=== PATIENT | male | born 1940 | race Caucasian/White ===

== ENCOUNTER 2017-06-08 19:36 | Inpatient (IN) ==
[2017-06-08] MEDS ORDERED: ASPIRIN 325 MG TABLET PO STA (20:17)
[2017-06-08] MEDS ORDERED: ONDANSETRON 4 MG/2 ML VIAL IV STA (20:17)
[2017-06-08] MEDS ORDERED: NITROGLYCERIN 2% OINT 1 INCH/GM PACK TOP STA (20:17)
[2017-06-08] MEDS ORDERED: ALUM/MAG/SIMETH/LIDO VISC 1:1 30 ML BOTTLE PO STA (20:17)
[2017-06-08] MEDS ORDERED: MORPHINE 2 MG/1 ML SYRINGE IV STA (20:17)
[2017-06-08] MEDS ORDERED: METOPROLOL TARTRATE 25 MG TABLET PO STA (20:19)
[2017-06-08] MEDS ORDERED: ONDANSETRON 4 MG/2 ML VIAL ONE (20:54)
[2017-06-08] MEDS ORDERED: ASPIRIN 325 MG TABLET ONE (20:54)
[2017-06-08] MEDS ORDERED: METOPROLOL TARTRATE 25 MG TABLET ONE (20:54)
[2017-06-08] MEDS ORDERED: NITROGLYCERIN 2% OINT 1 INCH/GM PACK TOP ONE (20:54)
[2017-06-08] MEDS ORDERED: MORPHINE 2 MG/1 ML SYRINGE ONE (20:54)
[2017-06-08] MEDS ORDERED: ALUM/MAG/SIMETH/LIDO VISC 1:1 30 ML BOTTLE PO ONE (20:54)
[2017-06-08 21:00] LABS: Basophils % 0.3 % (0.0-0.8); Eosinophils # 0.4 10*3/uL (0.0-0.87); Eosinophils % 4.2 % (0.00-10.9); Hematocrit 35.3 VOL% (42.0-52.0); Hemoglobin 11.1 GM/DL (14.0-18.0); Immature Granulocytes % 1.1 %; Lymphocytes # 2.4 10*3/uL (1.4-4.0); Lymphocytes % 25.6 % (21.2-54.2); Mean Corpuscular HGB Conc 31.4 GM/DL (32-36); Mean Corpuscular Hemoglobin 26 PG (27-34); Mean Corpuscular Volume 82.3 FL (87-102); Monocytes # 1.1 10*3/uL (0.11-0.8); Monocytes % 12.1 % (1.7-12.7); Neutrophils # 5.2 10*3/uL (1.4-7.4); Neutrophils % 56.7 % (38.7-73.9); Platelet Count 250 T/CUMM (130-400); Red Blood Count 4.29 MC/CUMM (3.8-5.5); Red Cell Distribution Width 16.4 % (9.3-17.3); White Blood Count 9.2 T/CUMM (4-12)
[2017-06-08 21:13] LABS: PT Patient Result 10.7 SECS
[2017-06-08 21:20] LABS: Alanine Aminotransferase 19 U/L (16-61); Albumin 3.3 G/DL (3.4-5.0); Alkaline Phosphatase 99 U/L (45-117); Aspartate Amino Transferase 11 U/L (0-37); Bilirubin,Total < 0.39 MG/DL (0.2-1.0); Blood Urea Nitrogen 18 MG/DL (7-18); Calcium 8.3 MG/DL (8.5-10.1); Glucose 150 MG/DL (74-106); Osmolality,Calculated 281.5 MOS/KG (273-304); Potassium 3.8 MMOL/L (3.5-5.1); Sodium 139 MMOL/L (136-145); Total Protein 6.5 G/DL (6.4-8.3)
[2017-06-08] MEDS ORDERED: ENOXAPARIN 100 MG/ML SYRINGE SUBCUT STA (21:50)
[2017-06-08] MEDS ORDERED: ENOXAPARIN 80 MG/0.8 ML SYRINGE SUBCUT ONE (22:43)
[2017-06-08 23:38] LABS: Apearance,Urine CLEAR (Clear); Bilirubin,Urine Negative (Negative); Blood, Urine Negative (Negative); Glucose,Urine (UA) Negative (Negative); Hyaline Casts,Urine 4 /LPF (0-3); Ketones,Urine Negative (Negative); Mucus,Urine Occasional /LPF (Occasional); Nitrite,Urine Negative (Negative); Protein,Urine Negative; RBC,Urine <1 /HPF (0-4); Urine Color Yellow (Yellow); Urine Specific Gravity 1.014 (1.001-1.035); WBC,Urine 1 /HPF (0-6)
[2017-06-08] MEDS ORDERED: MAGNESIUM SULF RIDER 4 GM in PREMIX 1 EACH IV PRN (23:40)
[2017-06-08] MEDS ORDERED: MORPHINE 2 MG/1 ML SYRINGE IV PRN (23:40)
[2017-06-08] MEDS ORDERED: POTASSIUM CHLORIDE 20 MEQ TABLET PO PRN (23:40)
[2017-06-08] MEDS ORDERED: SODIUM CHLORIDE 0.9% 1,000 ML IV SCH (23:40)
[2017-06-08] MEDS ORDERED: MAGNESIUM SULF RIDER 2 GM in PREMIX 1 EACH IV PRN (23:40)
[2017-06-08] MEDS ORDERED: METHOCARBAMOL 750 MG TABLET PO PRN (23:40)
[2017-06-08] MEDS ORDERED: ONDANSETRON 4 MG/2 ML VIAL IV PRN (23:40)
[2017-06-09] MEDS: NITROGLYCERIN 2% OINT 1 INCH/GM PACK TOP SCH ×4 (00:19→18:43)
[2017-06-09 03:56] LABS: Basophils % 0.4 % (0.0-0.8); Eosinophils # 0.4 10*3/uL (0.0-0.87); Eosinophils % 4.2 % (0.00-10.9); Hematocrit 33.2 VOL% (42.0-52.0); Hemoglobin 10.5 GM/DL (14.0-18.0); Immature Granulocytes % 1.2 %; Lymphocytes # 2.4 10*3/uL (1.4-4.0); Lymphocytes % 28.3 % (21.2-54.2); Mean Corpuscular HGB Conc 31.6 GM/DL (32-36); Mean Corpuscular Hemoglobin 26 PG (27-34); Mean Corpuscular Volume 82.4 FL (87-102); Mean Platelet Volume 11.3 FL (9.6-12.0); Monocytes % 11.5 % (1.7-12.7); Neutrophils # 4.6 10*3/uL (1.4-7.4); Neutrophils % 54.4 % (38.7-73.9); Platelet Count 229 T/CUMM (130-400); Red Blood Count 4.03 MC/CUMM (3.8-5.5); Red Cell Distribution Width 16.5 % (9.3-17.3); White Blood Count 8.4 T/CUMM (4-12)
[2017-06-09 04:36] LABS: Alanine Aminotransferase 17 U/L (16-61); Alkaline Phosphatase 85 U/L (45-117); Aspartate Amino Transferase 11 U/L (0-37); Bilirubin,Total < 0.39 MG/DL (0.2-1.0); Blood Urea Nitrogen 17 MG/DL (7-18); Calcium 8.4 MG/DL (8.5-10.1); Cholesterol 86 MG/DL (50-200); Glucose 104 MG/DL (74-106); HDL Cholesterol 28 MG/DL (40-60); Osmolality,Calculated 280.4 MOS/KG (273-304); Potassium 4.9 MMOL/L (3.5-5.1); Risk Ratio 3.07; Sodium 140 MMOL/L (136-145); Triglycerides 75 MG/DL (2-150)
[2017-06-09] MEDS ORDERED: CARVEDILOL 3.125 MG TABLET PO SCH (09:00)
[2017-06-09] MEDS ORDERED: FLUTICASONE 50 MCG NASAL SPRAY 16 GM BOTTLE BOTH NARES SCH (09:00)
[2017-06-09] MEDS ORDERED: CYANOCOBALAMIN 500 MCG TABLET PO SCH (09:00)
[2017-06-09] MEDS ORDERED: ATORVASTATIN 10 MG TABLET PO SCH (09:00)
[2017-06-09] MEDS ORDERED: PANTOPRAZOLE 40 MG TABLET PO SCH (09:00)
[2017-06-09] MEDS ORDERED: DOCUSATE SODIUM 100 MG CAPSULE PO SCH (09:00)
[2017-06-09] MEDS ORDERED: GLUCOSAMINE 500 MG TABLET PO SCH (09:00)
[2017-06-09] MEDS ORDERED: GABAPENTIN 600 MG TABLET PO SCH (09:00)
[2017-06-09] MEDS ORDERED: ESCITALOPRAM 10 MG TABLET PO SCH (09:00)
[2017-06-09] MEDS ORDERED: traMADol 50 MG TABLET PO SCH (09:00)
[2017-06-09] MEDS ORDERED: COENZYME Q10 100 MG CAPSULE PO SCH (09:00)
[2017-06-09] MEDS ORDERED: NON-FORMULARY MEDICATION (Omeprazole [Prilosec] 20 MG) PO SCH (09:00)
[2017-06-09] MEDS ORDERED: ASPIRIN CHEW 81 MG TABLET PO SCH (09:00)
[2017-06-09] MEDS ORDERED: TESTOSTERONE TOP SCH (09:00)
[2017-06-09] MEDS ORDERED: REGADENOSON 0.4 MG/5 ML SYRINGE IV ONE (11:40)
[2017-06-09 15:55] VITALS: BP 150/76
[2017-06-09] MEDS ORDERED: TAMSULOSIN 0.4 MG CAPSULE PO SCH (21:00)
== END 2017-06-09 20:35 | disposition home or self-care (01) | DRG 392 ==
LOC: N.ED 19:36 → N.EDINP 21:52 → N.TELES 22:33
PROVIDERS: ADMIT Internal Medicine Cardiovascular Disease; ATTEND Internal Medicine Cardiovascular Disease

== ENCOUNTER 2017-08-07 12:07 | Observation (INO) ==
[2017-08-07 12:54] LABS: Basophils % 0.4 % (0.0-0.8); Eosinophils # 0.2 10*3/uL (0.0-0.87); Eosinophils % 2.3 % (0.00-10.9); Hemoglobin 10.5 GM/DL (14.0-18.0); Immature Granulocytes % 0.7 %; Immature Granulocytes Absolute 0.06 #; Lymphocytes # 1.6 10*3/uL (1.4-4.0); Lymphocytes % 17.3 % (21.2-54.2); Mean Corpuscular HGB Conc 31.8 GM/DL (32-36); Mean Corpuscular Hemoglobin 26 PG (27-34); Mean Corpuscular Volume 80.1 FL (87-102); Mean Platelet Volume 10.7 FL (9.6-12.0); Monocytes # 0.9 10*3/uL (0.11-0.8); Monocytes % 9.5 % (1.7-12.7); Neutrophils # 6.3 10*3/uL (1.4-7.4); Neutrophils % 69.8 % (38.7-73.9); Platelet Count 302 T/CUMM (130-400); Red Blood Count 4.12 MC/CUMM (3.8-5.5); Red Cell Distribution Width 16.3 % (9.3-17.3); White Blood Count 9.1 T/CUMM (4-12)
[2017-08-07 13:26] LABS: Calcium 8.7 MG/DL (8.5-10.1); Potassium 4.3 MMOL/L (3.5-5.1); Troponin I Only 0.021 NG/ML (0.00-0.045)
[2017-08-07] MEDS ORDERED: POTASSIUM CHLORIDE 20 MEQ TABLET PO PRN (13:40)
[2017-08-07] MEDS ORDERED: MAGNESIUM SULF RIDER 2 GM in PREMIX 1 EACH IV PRN (13:40)
[2017-08-07] MEDS ORDERED: MAGNESIUM SULF RIDER 4 GM in PREMIX 1 EACH IV PRN (13:40)
[2017-08-07] MEDS ORDERED: NITROGLYCERIN SL 0.4 MG TABLET SL PRN (13:43)
[2017-08-07] MEDS: DEXTROSE 5% NACL 0.45% 1,000 ML IV SCH (15:15)
[2017-08-07 17:02] LABS: Troponin I Only 0.017 NG/ML (0.00-0.045)
[2017-08-07 19:48] LABS: Troponin I Only < 0.015 NG/ML (0.00-0.045)
[2017-08-07] MEDS: traMADol 50 MG TABLET PO SCH (20:30)
[2017-08-07] MEDS: CARVEDILOL 3.125 MG TABLET PO SCH (20:30)
[2017-08-07] MEDS: ESCITALOPRAM 10 MG TABLET PO SCH (20:30)
[2017-08-07] MEDS: GABAPENTIN 600 MG TABLET PO SCH (20:30)
[2017-08-07] MEDS ORDERED: ASPIRIN CHEW 81 MG TABLET PO SCH (21:00)
[2017-08-07] MEDS ORDERED: ENOXAPARIN 40 MG/0.4 ML SYRINGE SUBCUT SCH (21:00)
[2017-08-07] MEDS ORDERED: TAMSULOSIN 0.4 MG CAPSULE PO SCH (21:00)
[2017-08-08 05:59] LABS: Risk Ratio 3.19; VLDL CHOLESTEROL 15.6 MG/DL
[2017-08-08] MEDS: CARVEDILOL 3.125 MG TABLET PO SCH (08:12)
[2017-08-08] MEDS: GABAPENTIN 600 MG TABLET PO SCH (08:12)
[2017-08-08] MEDS: ESCITALOPRAM 10 MG TABLET PO SCH (08:12)
[2017-08-08] MEDS: traMADol 50 MG TABLET PO SCH (08:13)
[2017-08-08] MEDS ORDERED: COENZYME Q10 100 MG CAPSULE PO SCH (09:00)
[2017-08-08] MEDS ORDERED: PANTOPRAZOLE 40 MG TABLET PO SCH (09:00)
[2017-08-08] MEDS ORDERED: CYANOCOBALAMIN 2500 MCG SL SCH (09:00)
[2017-08-08] MEDS ORDERED: ACETAMINOPHEN 325 MG TABLET PO PRN (10:19)
[2017-08-08] MEDS ORDERED: ZALEPLON 5 MG CAPSULE PO PRN (10:19)
[2017-08-08] MEDS ORDERED: ONDANSETRON 4 MG/2 ML VIAL IV PRN (10:19)
[2017-08-08] MEDS ORDERED: BISACODYL 5 MG TABLET PO PRN (10:19)
[2017-08-08] MEDS: DEXTROSE 5% NACL 0.45% 1,000 ML IV SCH (10:45)
[2017-08-08] MEDS ORDERED: MAGNESIUM HYDROXIDE SUSP 30 ML UDCUP PO PRN (12:05)
[2017-08-08] MEDS ORDERED: SIMETHICONE CHEW 80 MG TABLET PO PRN (12:05)
[2017-08-08] MEDS: CALCIUM CARBONATE CHEW 500 MG TABLET PO PRN ×2 (13:22→17:09)
[2017-08-08 16:14] VITALS: BP 141/74
[2017-08-09] MEDS ORDERED: ATORVASTATIN 10 MG TABLET PO SCH (09:00)
== END 2017-08-08 17:39 | disposition home or self-care (01) ==
LOC: EDUNIT# → EDBD → N.EDINP 12:07 → N.ED 12:07 → N.TELEN 14:52
PROVIDERS: ADMIT Internal Medicine Cardiovascular Disease; ATTEND Internal Medicine Cardiovascular Disease

== ENCOUNTER 2018-01-29 14:12 | Inpatient (IN) ==
[2018-01-29 15:55] LABS: Basophils % 0.4 % (0.0-0.8); Eosinophils # 0.1 10*3/uL (0.0-0.87); Eosinophils % 1.7 % (0.00-10.9); Hematocrit 31.1 VOL% (42.0-52.0); Hemoglobin 9.5 GM/DL (14.0-18.0); Immature Granulocytes % 0.6 %; Immature Granulocytes Absolute 0.04 #; Lymphocytes % 13.9 % (21.2-54.2); Mean Corpuscular HGB Conc 30.5 GM/DL (32-36); Mean Corpuscular Hemoglobin 24 PG (27-34); Mean Corpuscular Volume 78.5 FL (87-102); Mean Platelet Volume 11.4 FL (9.6-12.0); Monocytes # 0.5 10*3/uL (0.11-0.8); Monocytes % 6.5 % (1.7-12.7); Neutrophils # 5.6 10*3/uL (1.4-7.4); Neutrophils % 76.9 % (38.7-73.9); Platelet Count 221 T/CUMM (130-400); Red Blood Count 3.96 MC/CUMM (3.8-5.5); Red Cell Distribution Width 19.7 % (9.3-17.3); White Blood Count 7.3 T/CUMM (4-12)
[2018-01-29 16:08] LABS: INR 1.1; Partial Thromboplastin Time 31.7 SECS (0-40)
[2018-01-29 16:36] LABS: Alanine Aminotransferase 22 U/L (16-61); Albumin 3.2 G/DL (3.4-5.0); Alkaline Phosphatase 61 U/L (45-117); Aspartate Amino Transferase 12 U/L (0-37); Calcium 8.1 MG/DL (8.5-10.1); Total Protein 6.5 G/DL (6.4-8.3)
[2018-01-29 16:37] LABS: Blood Urea Nitrogen 13 MG/DL (7-18); Glucose 127 MG/DL (74-106); Osmolality,Calculated 280.4 MOS/KG (273-304); Potassium 3.9 MMOL/L (3.5-5.1); Sodium 140 MMOL/L (136-145); Troponin I < 0.015 NG/ML (0.00-0.045)
[2018-01-29] MEDS ORDERED: ALBUTEROL/IPRATROPIUM 3 ML NEB RESP TX STA (19:17)
[2018-01-29] MEDS ORDERED: methylPREDNISolone SOD SUC 125 MG/2 ML VIAL IV STA (19:18)
[2018-01-29] MEDS ORDERED: cefTRIAXone 1,000 MG in SODIUM CHLORIDE 0.9% 100 ML IV STA (19:18)
[2018-01-29] MEDS ORDERED: AZITHROMYCIN 250 MG TABLET PO STA (19:18)
[2018-01-29] MEDS ORDERED: ONDANSETRON 4 MG/2 ML VIAL IV PRN (23:11)
[2018-01-29] MEDS: ATORVASTATIN 10 MG TABLET PO SCH (23:37)
[2018-01-29] MEDS: PANTOPRAZOLE 40 MG TABLET PO SCH (23:37)
[2018-01-29] MEDS: CARVEDILOL 3.125 MG TABLET PO SCH (23:38)
[2018-01-29] MEDS: ASPIRIN EC 81 MG TABLET PO SCH (23:38)
[2018-01-29] MEDS: GABAPENTIN 600 MG TABLET PO SCH (23:38)
[2018-01-29] MEDS: TAMSULOSIN 0.4 MG CAPSULE PO SCH (23:38)
[2018-01-30] MEDS: ALBUTEROL/IPRATROPIUM 3 ML NEB RESP TX SCH ×4 (01:17→19:25)
[2018-01-30] MEDS ORDERED: VANCOMYCIN INJ 1,250 MG in SODIUM CHLORIDE 0.9% 250 ML IV SCH ×2 (07:30→10:00)
[2018-01-30 07:50] LABS: Hematocrit 32.5 VOL% (42.0-52.0); Hemoglobin 9.7 GM/DL (14.0-18.0); Immature Granulocytes % 0.7 %; Immature Granulocytes Absolute 0.04 #; Lymphocytes # 0.6 10*3/uL (1.4-4.0); Lymphocytes % 11.4 % (21.2-54.2); Mean Corpuscular HGB Conc 29.8 GM/DL (32-36); Mean Corpuscular Hemoglobin 24 PG (27-34); Mean Corpuscular Volume 79.5 FL (87-102); Mean Platelet Volume 12.1 FL (9.6-12.0); Monocytes # 0.1 10*3/uL (0.11-0.8); Monocytes % 1.8 % (1.7-12.7); Neutrophils # 4.8 10*3/uL (1.4-7.4); Neutrophils % 86.1 % (38.7-73.9); Platelet Count 230 T/CUMM (130-400); Red Blood Count 4.09 MC/CUMM (3.8-5.5); Red Cell Distribution Width 19.8 % (9.3-17.3); White Blood Count 5.6 T/CUMM (4-12)
[2018-01-30 08:11] LABS: Calcium 8.5 MG/DL (8.5-10.1); Osmolality,Calculated 277.7 MOS/KG (273-304); Potassium 4.3 MMOL/L (3.5-5.1)
[2018-01-30] MEDS: PANTOPRAZOLE 40 MG TABLET PO SCH ×2 (08:41→21:25)
[2018-01-30] MEDS: CARVEDILOL 3.125 MG TABLET PO SCH ×2 (08:41→18:05)
[2018-01-30] MEDS: DOCUSATE SODIUM 100 MG CAPSULE PO SCH (08:41)
[2018-01-30] MEDS: GABAPENTIN 600 MG TABLET PO SCH ×2 (08:41→21:25)
[2018-01-30] MEDS: ESCITALOPRAM 10 MG TABLET PO SCH (08:41)
[2018-01-30] MEDS: COENZYME Q10 100 MG CAPSULE PO SCH (08:41)
[2018-01-30] MEDS: predniSONE 20 MG TABLET PO SCH (08:41)
[2018-01-30] MEDS ORDERED: AZITHROMYCIN 250 MG TABLET PO SCH (09:00)
[2018-01-30] MEDS: LEVOFLOXACIN INJ 750 MG in PREMIX 1 EACH IV SCH (09:32)
[2018-01-30] MEDS ORDERED: AZITHROMYCIN INJ 500 MG in SODIUM CHLORIDE 0.9% 250 ML IV SCH (10:00)
[2018-01-30] MEDS: ENOXAPARIN 40 MG/0.4 ML SYRINGE SUBCUT SCH (13:41)
[2018-01-30] MEDS: MEROPENEM 1,000 MG in SODIUM CHLORIDE 0.9% 100 ML IV SCH ×2 (13:51→21:25)
[2018-01-30] MEDS: FUROSEMIDE 40 MG/4 ML VIAL IV SCH (18:05)
[2018-01-30] MEDS ORDERED: cefTRIAXone 1,000 MG in SYRINGE 1 EACH IV SCH (21:00)
[2018-01-30] MEDS: TAMSULOSIN 0.4 MG CAPSULE PO SCH (21:25)
[2018-01-30] MEDS: ASPIRIN EC 81 MG TABLET PO SCH (21:25)
[2018-01-31] MEDS: ALBUTEROL/IPRATROPIUM 3 ML NEB RESP TX SCH ×4 (00:38→19:46)
[2018-01-31 05:50] LABS: Basophils % 0.2 % (0.0-0.8); Eosinophils % 0.2 % (0.00-10.9); Hematocrit 30.3 VOL% (42.0-52.0); Hemoglobin 8.9 GM/DL (14.0-18.0); Immature Granulocytes % 0.4 %; Immature Granulocytes Absolute 0.04 #; Lymphocytes # 1.5 10*3/uL (1.4-4.0); Lymphocytes % 15.2 % (21.2-54.2); Mean Corpuscular HGB Conc 29.4 GM/DL (32-36); Mean Corpuscular Hemoglobin 24 PG (27-34); Mean Corpuscular Volume 79.9 FL (87-102); Mean Platelet Volume 11.5 FL (9.6-12.0); Monocytes # 0.9 10*3/uL (0.11-0.8); Monocytes % 9.3 % (1.7-12.7); Neutrophils # 7.4 10*3/uL (1.4-7.4); Neutrophils % 74.7 % (38.7-73.9); Platelet Count 211 T/CUMM (130-400); Red Blood Count 3.79 MC/CUMM (3.8-5.5); Red Cell Distribution Width 19.9 % (9.3-17.3); White Blood Count 9.9 T/CUMM (4-12)
[2018-01-31] MEDS: MEROPENEM 1,000 MG in SODIUM CHLORIDE 0.9% 100 ML IV SCH ×3 (06:07→21:19)
[2018-01-31 06:11] LABS: Bilirubin,Total 0.7 MG/DL (0.2-1.0); Calcium 8.8 MG/DL (8.5-10.1); Osmolality,Calculated 286.1 MOS/KG (273-304); Potassium 3.9 MMOL/L (3.5-5.1); Total Protein 6.1 G/DL (6.4-8.3)
[2018-01-31] MEDS: DOCUSATE SODIUM 100 MG CAPSULE PO SCH (08:56)
[2018-01-31] MEDS: PANTOPRAZOLE 40 MG TABLET PO SCH ×2 (10:20→20:00)
[2018-01-31] MEDS: FUROSEMIDE 40 MG/4 ML VIAL IV SCH ×2 (10:20→16:54)
[2018-01-31] MEDS: ESCITALOPRAM 10 MG TABLET PO SCH (10:20)
[2018-01-31] MEDS: ENOXAPARIN 40 MG/0.4 ML SYRINGE SUBCUT SCH (10:20)
[2018-01-31] MEDS: GABAPENTIN 600 MG TABLET PO SCH ×2 (10:20→20:00)
[2018-01-31] MEDS: LEVOFLOXACIN INJ 750 MG in PREMIX 1 EACH IV SCH (10:21)
[2018-01-31] MEDS: predniSONE 20 MG TABLET PO SCH (10:21)
[2018-01-31] MEDS: CARVEDILOL 3.125 MG TABLET PO SCH ×2 (10:21→16:55)
[2018-01-31] MEDS: COENZYME Q10 100 MG CAPSULE PO SCH (10:23)
[2018-01-31] MEDS: ASPIRIN EC 81 MG TABLET PO SCH (19:59)
[2018-01-31] MEDS: ATORVASTATIN 10 MG TABLET PO SCH (20:00)
[2018-01-31] MEDS: TAMSULOSIN 0.4 MG CAPSULE PO SCH (20:00)
[2018-02-01] MEDS: ALBUTEROL/IPRATROPIUM 3 ML NEB RESP TX SCH ×2 (00:33→07:55)
[2018-02-01 05:41] LABS: Basophils % 0.2 % (0.0-0.8); Eosinophils % 0.2 % (0.00-10.9); Hematocrit 33.4 VOL% (42.0-52.0); Hemoglobin 10.2 GM/DL (14.0-18.0); Immature Granulocytes % 0.5 %; Immature Granulocytes Absolute 0.07 #; Lymphocytes # 1.8 10*3/uL (1.4-4.0); Lymphocytes % 13.8 % (21.2-54.2); Mean Corpuscular HGB Conc 30.5 GM/DL (32-36); Mean Corpuscular Hemoglobin 24 PG (27-34); Mean Corpuscular Volume 78.4 FL (87-102); Mean Platelet Volume 11.7 FL (9.6-12.0); Monocytes # 1.2 10*3/uL (0.11-0.8); Neutrophils % 76.3 % (38.7-73.9); Platelet Count 264 T/CUMM (130-400); Red Blood Count 4.26 MC/CUMM (3.8-5.5); Red Cell Distribution Width 19.8 % (9.3-17.3); White Blood Count 13.1 T/CUMM (4-12)
[2018-02-01 05:59] LABS: Albumin 3.2 G/DL (3.4-5.0); Bilirubin,Total 0.5 MG/DL (0.2-1.0); Calcium 8.6 MG/DL (8.5-10.1); Osmolality,Calculated 281.4 MOS/KG (273-304); Potassium 3.8 MMOL/L (3.5-5.1); Total Protein 6.5 G/DL (6.4-8.3)
[2018-02-01] MEDS: MEROPENEM 1,000 MG in SODIUM CHLORIDE 0.9% 100 ML IV SCH (06:15)
[2018-02-01] MEDS: PANTOPRAZOLE 40 MG TABLET PO SCH (09:01)
[2018-02-01] MEDS: ESCITALOPRAM 10 MG TABLET PO SCH (09:01)
[2018-02-01] MEDS: COENZYME Q10 100 MG CAPSULE PO SCH (09:01)
[2018-02-01] MEDS: predniSONE 20 MG TABLET PO SCH (09:01)
[2018-02-01] MEDS: DOCUSATE SODIUM 100 MG CAPSULE PO SCH (09:01)
[2018-02-01] MEDS: GABAPENTIN 600 MG TABLET PO SCH (09:01)
[2018-02-01] MEDS: FUROSEMIDE 40 MG/4 ML VIAL IV SCH (09:02)
[2018-02-01] MEDS: LEVOFLOXACIN INJ 750 MG in PREMIX 1 EACH IV SCH (09:02)
[2018-02-01] MEDS: CARVEDILOL 3.125 MG TABLET PO SCH (09:02)
[2018-02-01] MEDS: ENOXAPARIN 40 MG/0.4 ML SYRINGE SUBCUT SCH (09:03)
[2018-02-01 12:09] VITALS: BP 136/61
== END 2018-02-01 11:55 | disposition home or self-care (01) | DRG 291 ==
LOC: N.ED 14:12 → SUATTDRO 21:30 → N.EDINP 21:30 → N.5E 22:30
PROVIDERS: ADMIT Internal Medicine

== ENCOUNTER 2018-03-07 13:26 | Inpatient (IN) ==
[2018-03-07] MEDS ORDERED: LEVOFLOXACIN INJ 500 MG in PREMIX 1 EACH IV STA (14:00)
[2018-03-07 14:31] LABS: Basophils % 0.2 % (0.0-0.8); Eosinophils % 0.2 % (0.00-10.9); Hematocrit 31.9 VOL% (42.0-52.0); Hemoglobin 9.7 GM/DL (14.0-18.0); Immature Granulocytes % 0.8 %; Immature Granulocytes Absolute 0.15 #; Lymphocytes # 0.7 10*3/uL (1.4-4.0); Lymphocytes % 3.8 % (21.2-54.2); Mean Corpuscular HGB Conc 30.4 GM/DL (32-36); Mean Corpuscular Hemoglobin 23 PG (27-34); Mean Corpuscular Volume 75.4 FL (87-102); Mean Platelet Volume 11.8 FL (9.6-12.0); Monocytes # 1.3 10*3/uL (0.11-0.8); Monocytes % 7.1 % (1.7-12.7); NRBC # 0.03 10*3/uL; Neutrophils # 15.9 10*3/uL (1.4-7.4); Neutrophils % 87.9 % (38.7-73.9); Platelet Count 218 T/CUMM (130-400); Red Blood Count 4.23 MC/CUMM (3.8-5.5); White Blood Count 18.1 T/CUMM (4-12)
[2018-03-07 14:42] LABS: Albumin 3.3 G/DL (3.4-5.0); Osmolality,Calculated 278.8 MOS/KG (273-304); Potassium 3.6 MMOL/L (3.5-5.1); Total Protein 6.6 G/DL (6.4-8.3)
[2018-03-07 15:20] LABS: Lymphocytes 3 % (20-55); Nucleated Red Blood Cells 1 (0-5); Segmented Neutrophils 90 % (50-85); Total Cells Counted 100
[2018-03-07 15:24] LABS: Anisocytosis 1+; Elliptocytes Few; Lactic Acid 1.3 MMOL/L (0.4-2.0)
[2018-03-07 15:25] LABS: Giant Platelets Few; Hypochromasia 1+; Ovalocytes 1+; Polychromasia Few
[2018-03-07 15:26] LABS: Schistocytes Few
[2018-03-07 16:00] LABS: Apearance,Urine CLEAR (Clear); Bilirubin,Urine Negative (Negative); Blood, Urine Negative (Negative); Glucose,Urine (UA) Negative (Negative); Ketones,Urine Negative (Negative); Mucus,Urine Occasional /LPF (Occasional); Nitrite,Urine Negative (Negative); Protein,Urine Negative; RBC,Urine 1 /HPF (0-4); Urine Color Yellow (Yellow); WBC,Urine <1 /HPF (0-6)
[2018-03-07] MEDS ORDERED: ACETAMINOPHEN 325 MG TABLET PO PRN (16:16)
[2018-03-07] MEDS ORDERED: ONDANSETRON 4 MG/2 ML VIAL IV PRN (16:16)
[2018-03-07] MEDS: ENOXAPARIN 40 MG/0.4 ML SYRINGE SUBCUT SCH (17:22)
[2018-03-07] MEDS ORDERED: LORazepam 2 MG/1 ML VIAL IV PRN (17:33)
[2018-03-07] MEDS: ALBUTEROL/IPRATROPIUM 3 ML NEB RESP TX SCH (19:30)
[2018-03-07] MEDS: CARVEDILOL 3.125 MG TABLET PO SCH (21:22)
[2018-03-07] MEDS: PANTOPRAZOLE 40 MG TABLET PO SCH (21:22)
[2018-03-07] MEDS: TAMSULOSIN 0.4 MG CAPSULE PO SCH (21:22)
[2018-03-07] MEDS: GABAPENTIN 600 MG TABLET PO SCH (21:22)
[2018-03-07] MEDS: ASPIRIN EC 81 MG TABLET PO SCH (21:22)
[2018-03-08] MEDS: ALBUTEROL/IPRATROPIUM 3 ML NEB RESP TX SCH ×4 (00:50→19:53)
[2018-03-08] MEDS: PANTOPRAZOLE 40 MG TABLET PO SCH ×3 (08:09→20:48)
[2018-03-08] MEDS: GABAPENTIN 600 MG TABLET PO SCH ×3 (08:09→20:47)
[2018-03-08] MEDS: CARVEDILOL 3.125 MG TABLET PO SCH ×2 (08:09→18:58)
[2018-03-08] MEDS: predniSONE 10 MG TABLET PO SCH (08:09)
[2018-03-08] MEDS: FUROSEMIDE 40 MG/4 ML VIAL IV SCH ×2 (08:10→18:46)
[2018-03-08] MEDS: FLUTICASONE 50 MCG NASAL SPRAY 16 GM BOTTLE BOTH NARES SCH (08:14)
[2018-03-08 08:28] LABS: Basophils % 0.2 % (0.0-0.8); Eosinophils # 0.1 10*3/uL (0.0-0.87); Eosinophils % 0.9 % (0.00-10.9); Hematocrit 29.9 VOL% (42.0-52.0); Immature Granulocytes % 0.5 %; Immature Granulocytes Absolute 0.06 #; Lymphocytes # 1.8 10*3/uL (1.4-4.0); Lymphocytes % 13.9 % (21.2-54.2); Mean Corpuscular HGB Conc 30.1 GM/DL (32-36); Mean Corpuscular Hemoglobin 23 PG (27-34); Mean Corpuscular Volume 76.7 FL (87-102); Mean Platelet Volume 12.1 FL (9.6-12.0); Monocytes # 1.3 10*3/uL (0.11-0.8); Monocytes % 10.3 % (1.7-12.7); Neutrophils # 9.3 10*3/uL (1.4-7.4); Neutrophils % 74.2 % (38.7-73.9); Platelet Count 188 T/CUMM (130-400); Red Cell Distribution Width 19.7 % (9.3-17.3); White Blood Count 12.6 T/CUMM (4-12)
[2018-03-08 09:07] LABS: Albumin 2.9 G/DL (3.4-5.0); Bilirubin,Total 0.7 MG/DL (0.2-1.0); Calcium 8.3 MG/DL (8.5-10.1); Osmolality,Calculated 281.3 MOS/KG (273-304); Potassium 3.3 MMOL/L (3.5-5.1); Risk Ratio 2.45; Thyroid Stimulating Hormone 3.55 uIU/ml (0.358-3.74); Total Protein 5.9 G/DL (6.4-8.3); VLDL CHOLESTEROL 12.6 MG/DL
[2018-03-08] MEDS ORDERED: POTASSIUM CHLORIDE RIDER 10 MEQ in PREMIX 1 EACH IV PRN (10:15)
[2018-03-08] MEDS: POTASSIUM CHLORIDE 20 MEQ TABLET PO SCH (15:16)
[2018-03-08] MEDS: POTASSIUM CHLORIDE 20 MEQ/15 ML UDCUP PER TUBE PRN ×3 (15:16→18:58)
[2018-03-08] MEDS: LEVOFLOXACIN INJ 500 MG in PREMIX 1 EACH IV SCH (18:50)
[2018-03-08] MEDS: ENOXAPARIN 40 MG/0.4 ML SYRINGE SUBCUT SCH (18:52)
[2018-03-08] MEDS: ASPIRIN EC 81 MG TABLET PO SCH (20:47)
[2018-03-08] MEDS: TAMSULOSIN 0.4 MG CAPSULE PO SCH (20:47)
[2018-03-09 00:49] LABS: Calcium 8.6 MG/DL (8.5-10.1); Osmolality,Calculated 279.5 MOS/KG (273-304); Potassium 3.9 MMOL/L (3.5-5.1)
[2018-03-09 00:53] LABS: % Iron Saturation 5.4 % (18-50); Ferritin 40.3 ng/ml (26-388)
[2018-03-09 01:08] LABS: Folate > 24.0 NG/ML (5.4-24.0); Vitamin B12 > 2000 PG/ML (211-911)
[2018-03-09 01:12] LABS: Basophils % 0.2 % (0.0-0.8); Eosinophils # 0.2 10*3/uL (0.0-0.87); Eosinophils % 1.6 % (0.00-10.9); Hematocrit 34.9 VOL% (42.0-52.0); Hemoglobin 10.5 GM/DL (14.0-18.0); Immature Granulocytes % 1.1 %; Immature Granulocytes Absolute 0.15 #; Lymphocytes # 1.8 10*3/uL (1.4-4.0); Lymphocytes % 12.6 % (21.2-54.2); Mean Corpuscular HGB Conc 30.1 GM/DL (32-36); Mean Corpuscular Hemoglobin 23 PG (27-34); Mean Corpuscular Volume 76.4 FL (87-102); Mean Platelet Volume 11.8 FL (9.6-12.0); Monocytes # 1.3 10*3/uL (0.11-0.8); Monocytes % 9.4 % (1.7-12.7); NRBC # 0.02 10*3/uL; Neutrophils # 10.5 10*3/uL (1.4-7.4); Neutrophils % 75.1 % (38.7-73.9); Platelet Count 232 T/CUMM (130-400); Red Blood Count 4.57 MC/CUMM (3.8-5.5); Red Cell Distribution Width 19.6 % (9.3-17.3)
[2018-03-09] MEDS: ALBUTEROL/IPRATROPIUM 3 ML NEB RESP TX SCH ×4 (01:19→19:20)
[2018-03-09 02:35] LABS: Sedimentation Rate-Westergren 39 MM/HR (0-20)
[2018-03-09 04:48] LABS: Band Neutrophils 3 % (0-10); Eosinophils 2 % (0-10); Lymphocytes 12 % (20-55); Platelet Estimate Normal; Segmented Neutrophils 74 % (50-85); Total Cells Counted 100
[2018-03-09] MEDS: CARVEDILOL 3.125 MG TABLET PO SCH ×2 (08:33→16:40)
[2018-03-09] MEDS: PANTOPRAZOLE 40 MG TABLET PO SCH ×3 (08:34→20:33)
[2018-03-09] MEDS: GABAPENTIN 600 MG TABLET PO SCH ×3 (08:34→20:33)
[2018-03-09] MEDS: POTASSIUM CHLORIDE 20 MEQ TABLET PO SCH (08:34)
[2018-03-09] MEDS: predniSONE 10 MG TABLET PO SCH (08:34)
[2018-03-09] MEDS: FUROSEMIDE 40 MG/4 ML VIAL IV SCH ×2 (08:35→16:45)
[2018-03-09] MEDS: FLUTICASONE 50 MCG NASAL SPRAY 16 GM BOTTLE BOTH NARES SCH (08:40)
[2018-03-09] MEDS ORDERED: ATORVASTATIN 10 MG TABLET PO SCH (09:00)
[2018-03-09] MEDS ORDERED: LISINOPRIL 2.5 MG TABLET PO SCH (09:30)
[2018-03-09] MEDS ORDERED: IRON SUCROSE 200 MG in SODIUM CHLORIDE 0.9% 100 ML IV ONE (10:00)
[2018-03-09] MEDS: ENOXAPARIN 40 MG/0.4 ML SYRINGE SUBCUT SCH (16:54)
[2018-03-09] MEDS: LEVOFLOXACIN INJ 500 MG in PREMIX 1 EACH IV SCH (18:27)
[2018-03-09] MEDS: TAMSULOSIN 0.4 MG CAPSULE PO SCH (20:33)
[2018-03-09] MEDS: ASPIRIN EC 81 MG TABLET PO SCH (20:33)
[2018-03-10] MEDS: ALBUTEROL/IPRATROPIUM 3 ML NEB RESP TX SCH ×2 (00:34→07:30)
[2018-03-10 04:43] LABS: Basophils % 0.2 % (0.0-0.8); Eosinophils # 0.3 10*3/uL (0.0-0.87); Eosinophils % 2.5 % (0.00-10.9); Hematocrit 35.3 VOL% (42.0-52.0); Hemoglobin 10.7 GM/DL (14.0-18.0); Immature Granulocytes % 0.9 %; Immature Granulocytes Absolute 0.12 #; Lymphocytes # 1.9 10*3/uL (1.4-4.0); Lymphocytes % 14.8 % (21.2-54.2); Mean Corpuscular HGB Conc 30.3 GM/DL (32-36); Mean Corpuscular Hemoglobin 23 PG (27-34); Mean Corpuscular Volume 75.8 FL (87-102); Mean Platelet Volume 11.6 FL (9.6-12.0); Monocytes # 1.4 10*3/uL (0.11-0.8); Monocytes % 10.7 % (1.7-12.7); NRBC # 0.02 10*3/uL; Neutrophils # 9.1 10*3/uL (1.4-7.4); Neutrophils % 70.9 % (38.7-73.9); Platelet Count 246 T/CUMM (130-400); Red Blood Count 4.66 MC/CUMM (3.8-5.5); Red Cell Distribution Width 19.8 % (9.3-17.3); White Blood Count 12.9 T/CUMM (4-12)
[2018-03-10 04:51] LABS: Calcium 8.9 MG/DL (8.5-10.1); Osmolality,Calculated 280.4 MOS/KG (273-304); Potassium 3.4 MMOL/L (3.5-5.1)
[2018-03-10 07:40] VITALS: BP 132/64
[2018-03-10] MEDS: FUROSEMIDE 40 MG/4 ML VIAL IV SCH (08:42)
[2018-03-10] MEDS: GABAPENTIN 600 MG TABLET PO SCH (08:43)
[2018-03-10] MEDS: CARVEDILOL 3.125 MG TABLET PO SCH (08:43)
[2018-03-10] MEDS: PANTOPRAZOLE 40 MG TABLET PO SCH ×2 (08:43→08:58)
[2018-03-10] MEDS: predniSONE 10 MG TABLET PO SCH (08:43)
[2018-03-10] MEDS: FLUTICASONE 50 MCG NASAL SPRAY 16 GM BOTTLE BOTH NARES SCH (08:47)
[2018-03-10] MEDS ORDERED: POTASSIUM CHLORIDE 20 MEQ TABLET PO SCH (09:00)
[2018-03-10] MEDS ORDERED: LISINOPRIL 2.5 MG TABLET PO SCH (09:00)
[2018-03-13 10:33] LABS: Hemoglobin A1 (Alkaline) 97.6 % (96.5-98.5); Hemoglobin A2 (Alkaline) 2.4 % (1.5-3.5)
== END 2018-03-10 12:36 | disposition home or self-care (01) | DRG 291 ==
LOC: EDBD → EDUNIT# → N.ED 13:26 → N.EDINP 16:16 → N.TELES 17:11
PROVIDERS: ADMIT Hospitalist; ATTEND Hospitalist

== ENCOUNTER 2018-08-01 15:50 | Inpatient (IN) ==
[2018-08-01 17:16] LABS: Basophils % 0.3 % (0.0-0.8); Eosinophils # 0.4 10*3/uL (0.0-0.87); Eosinophils % 5.2 % (0.00-10.9); Hematocrit 37.1 VOL% (42.0-52.0); Hemoglobin 11.1 GM/DL (14.0-18.0); Immature Granulocytes % 0.4 %; Immature Granulocytes Absolute 0.03 #; Lymphocytes # 1.3 10*3/uL (1.4-4.0); Lymphocytes % 15.9 % (21.2-54.2); Mean Corpuscular HGB Conc 29.9 GM/DL (32-36); Mean Corpuscular Volume 77.9 FL (87-102); Mean Platelet Volume 10.8 FL (9.6-12.0); Monocytes % 11.3 % (1.7-12.7); Neutrophils % 66.9 % (38.7-73.9); Platelet Count 248 T/CUMM (130-400); Red Blood Count 4.76 MC/CUMM (3.8-5.5); Red Cell Distribution Width 17.9 % (9.3-17.3); White Blood Count 7.9 T/CUMM (4-12)
[2018-08-01] MEDS ORDERED: ASPIRIN 325 MG TABLET PO STA (17:26)
[2018-08-01] MEDS ORDERED: ENOXAPARIN 100 MG/ML SYRINGE SUBCUT STA (17:26)
[2018-08-01] MEDS ORDERED: ENOXAPARIN 80 MG/0.8 ML SYRINGE SUBCUT ONE (17:35)
[2018-08-01 17:39] LABS: Albumin 3.8 G/DL (3.4-5.0); Bilirubin,Total 0.4 MG/DL (0.2-1.0); Calcium 8.7 MG/DL (8.5-10.1); Osmolality,Calculated 281.4 MOS/KG (273-304); Total Protein 7.1 G/DL (6.4-8.3)
[2018-08-01] MEDS ORDERED: ACETAMINOPHEN 325 MG TABLET PO PRN (19:54)
[2018-08-01] MEDS ORDERED: ONDANSETRON 4 MG/2 ML VIAL IV PRN (19:54)
[2018-08-01] MEDS ORDERED: MORPHINE 4 MG/1 ML VIAL IV PRN (19:54)
[2018-08-01] MEDS ORDERED: ZALEPLON 5 MG CAPSULE PO PRN (19:54)
[2018-08-01] MEDS ORDERED: ALBUTEROL/IPRATROPIUM 3 ML NEB RESP TX PRN (20:03)
[2018-08-01 21:12] LABS: Troponin I 0.047 NG/ML (0.00-0.045)
[2018-08-01] MEDS: ESCITALOPRAM 10 MG TABLET PO SCH (22:57)
[2018-08-01] MEDS: GABAPENTIN 600 MG TABLET PO SCH (22:58)
[2018-08-01] MEDS: PANTOPRAZOLE 40 MG TABLET PO SCH (22:58)
[2018-08-01] MEDS: CARVEDILOL 3.125 MG TABLET PO SCH (22:58)
[2018-08-02 02:32] LABS: Basophils % 0.2 % (0.0-0.8); Basophils % 0.4 % (0.0-0.8); Eosinophils # 0.5 10*3/uL (0.0-0.87); Eosinophils % 5.6 % (0.00-10.9); Eosinophils % 5.9 % (0.00-10.9); Hematocrit 32.7 VOL% (42.0-52.0); Hematocrit 33.5 VOL% (42.0-52.0); Hemoglobin 10.1 GM/DL (14.0-18.0); Immature Granulocytes % 0.5 %; Immature Granulocytes Absolute 0.04 #; Lymphocytes # 1.5 10*3/uL (1.4-4.0); Lymphocytes % 17.9 % (21.2-54.2); Lymphocytes % 18.1 % (21.2-54.2); Mean Corpuscular HGB Conc 29.9 GM/DL (32-36); Mean Corpuscular HGB Conc 30.9 GM/DL (32-36); Mean Corpuscular Volume 76.8 FL (87-102); Mean Corpuscular Volume 77.9 FL (87-102); Mean Platelet Volume 10.9 FL (9.6-12.0); Monocytes % 10.4 % (1.7-12.7); Monocytes % 10.6 % (1.7-12.7); Neutrophils % 64.9 % (38.7-73.9); Platelet Count 217 T/CUMM (130-400); Platelet Count 221 T/CUMM (130-400); Red Blood Count 4.26 MC/CUMM (3.8-5.5); Red Cell Distribution Width 17.8 % (9.3-17.3); White Blood Count 8.1 T/CUMM (4-12); White Blood Count 8.2 T/CUMM (4-12)
[2018-08-02 02:43] LABS: Calcium 8.3 MG/DL (8.5-10.1); Osmolality,Calculated 280.4 MOS/KG (273-304)
[2018-08-02 02:56] LABS: Folate 23.2 NG/ML (5.4-24.0); Vitamin B12 > 2000 PG/ML (211-911)
[2018-08-02] MEDS: NITROGLYCERIN SL 0.4 MG TABLET SL PRN (03:52)
[2018-08-02] MEDS: ENOXAPARIN 80 MG/0.8 ML SYRINGE SUBCUT SCH ×2 (05:04→17:44)
[2018-08-02 08:10] LABS: Sedimentation Rate-Westergren 28 MM/HR (0-20)
[2018-08-02] MEDS: FLUTICASONE 50 MCG NASAL SPRAY 16 GM BOTTLE BOTH NARES SCH (09:11)
[2018-08-02] MEDS: GABAPENTIN 600 MG TABLET PO SCH ×2 (09:11→21:09)
[2018-08-02] MEDS: ESCITALOPRAM 10 MG TABLET PO SCH ×2 (09:11→21:10)
[2018-08-02] MEDS: PANTOPRAZOLE 40 MG TABLET PO SCH ×2 (09:11→21:10)
[2018-08-02] MEDS: FUROSEMIDE 40 MG TABLET PO SCH ×2 (09:12→18:24)
[2018-08-02] MEDS: CARVEDILOL 3.125 MG TABLET PO SCH ×2 (09:12→21:10)
[2018-08-02] MEDS: NITROGLYCERIN 0.2 MG/HR PATCH TRANSDERM SCH (09:12)
[2018-08-02] MEDS: DICYCLOMINE 20 MG TABLET PO SCH (09:12)
[2018-08-02 09:19] LABS: Hemoglobin A1 (Alkaline) 97.3 % (96.5-98.5); Hemoglobin A2 (Alkaline) 2.7 % (1.5-3.5)
[2018-08-02] MEDS ORDERED: diphenhydrAMINE CAP 25 MG CAPSULE PO ONE (10:42)
[2018-08-02] MEDS ORDERED: POTASSIUM CHLORIDE RIDER 10 MEQ in PREMIX 1 EACH IV PRN (10:42)
[2018-08-02] MEDS ORDERED: MAGNESIUM SULF RIDER 2 GM in PREMIX 1 EACH IV PRN (10:42)
[2018-08-02] MEDS ORDERED: DIAZEPAM 5 MG TABLET PO ONE (10:42)
[2018-08-02] MEDS: SODIUM CHLORIDE 0.9% 1,000 ML IV SCH (11:06)
[2018-08-02] MEDS ORDERED: LIDOCAINE 1% 20 ML VIAL ONE (11:29)
[2018-08-02] MEDS ORDERED: HEPARIN/NACL 0.9% 2 UNITS/ML 1,000 ML IV ONE (11:29)
[2018-08-02] MEDS ORDERED: HYDROmorphone 2 MG/1 ML VIAL ONE (11:56)
[2018-08-02] MEDS ORDERED: MIDAZOLAM 2 MG/2 ML VIAL ONE (11:57)
[2018-08-02] MEDS ORDERED: FUROSEMIDE 40 MG/4 ML VIAL ONE (13:15)
[2018-08-02] MEDS: TAMSULOSIN 0.4 MG CAPSULE PO SCH (18:24)
[2018-08-02] MEDS: ASPIRIN EC 81 MG TABLET PO SCH (21:09)
[2018-08-03 05:55] LABS: Calcium 8.7 MG/DL (8.5-10.1); Osmolality,Calculated 282.3 MOS/KG (273-304)
[2018-08-03] MEDS: ENOXAPARIN 80 MG/0.8 ML SYRINGE SUBCUT SCH (06:09)
[2018-08-03] MEDS: GABAPENTIN 600 MG TABLET PO SCH ×2 (08:54→21:38)
[2018-08-03] MEDS: ATORVASTATIN 10 MG TABLET PO SCH (08:54)
[2018-08-03] MEDS: PANTOPRAZOLE 40 MG TABLET PO SCH ×2 (08:54→21:38)
[2018-08-03] MEDS: ESCITALOPRAM 10 MG TABLET PO SCH ×2 (08:54→21:38)
[2018-08-03] MEDS: DICYCLOMINE 20 MG TABLET PO SCH (08:54)
[2018-08-03] MEDS: NITROGLYCERIN 0.2 MG/HR PATCH TRANSDERM SCH (08:55)
[2018-08-03] MEDS: CARVEDILOL 3.125 MG TABLET PO SCH ×2 (08:55→21:38)
[2018-08-03] MEDS: FUROSEMIDE 40 MG/4 ML VIAL IV SCH ×2 (09:03→16:30)
[2018-08-03] MEDS: ENOXAPARIN 40 MG/0.4 ML SYRINGE SUBCUT SCH (09:03)
[2018-08-03] MEDS: FLUTICASONE 50 MCG NASAL SPRAY 16 GM BOTTLE BOTH NARES SCH (09:08)
[2018-08-03] MEDS: SODIUM CHLORIDE 0.9% 1,000 ML IV SCH (09:22)
[2018-08-03] MEDS: FUROSEMIDE 40 MG TABLET PO SCH (09:22)
[2018-08-03] MEDS: TAMSULOSIN 0.4 MG CAPSULE PO SCH (18:15)
[2018-08-03] MEDS: ASPIRIN EC 81 MG TABLET PO SCH (21:45)
[2018-08-04 04:04] LABS: Calcium 8.2 MG/DL (8.5-10.1); Osmolality,Calculated 277.8 MOS/KG (273-304)
[2018-08-04] MEDS ORDERED: MEPERIDINE 25 MG/1 ML VIAL ONE (06:55)
[2018-08-04] MEDS ORDERED: MIDAZOLAM 10 MG/2 ML VIAL ONE (06:55)
[2018-08-04] MEDS ORDERED: MIDAZOLAM 2 MG/2 ML VIAL IV ONE (08:11)
[2018-08-04] MEDS: ENOXAPARIN 40 MG/0.4 ML SYRINGE SUBCUT SCH (09:59)
[2018-08-04] MEDS: ESCITALOPRAM 10 MG TABLET PO SCH ×2 (09:59→20:12)
[2018-08-04] MEDS: GABAPENTIN 600 MG TABLET PO SCH ×2 (10:00→20:12)
[2018-08-04] MEDS: CARVEDILOL 3.125 MG TABLET PO SCH ×2 (10:00→20:12)
[2018-08-04] MEDS: POTASSIUM CHLORIDE 20 MEQ TABLET PO SCH (10:00)
[2018-08-04] MEDS: FUROSEMIDE 40 MG/4 ML VIAL IV SCH ×2 (10:00→15:52)
[2018-08-04] MEDS: PANTOPRAZOLE 40 MG TABLET PO SCH ×2 (10:00→20:12)
[2018-08-04] MEDS: FLUTICASONE 50 MCG NASAL SPRAY 16 GM BOTTLE BOTH NARES SCH (10:00)
[2018-08-04] MEDS: DICYCLOMINE 20 MG TABLET PO SCH (10:05)
[2018-08-04] MEDS: NITROGLYCERIN 0.2 MG/HR PATCH TRANSDERM SCH (10:17)
[2018-08-04] MEDS: TAMSULOSIN 0.4 MG CAPSULE PO SCH (19:41)
[2018-08-04] MEDS: ASPIRIN EC 81 MG TABLET PO SCH (20:11)
[2018-08-04] MEDS: NITROGLYCERIN SL 0.4 MG TABLET SL PRN ×3 (20:59→23:48)
[2018-08-05 05:26] LABS: Calcium 8.6 MG/DL (8.5-10.1); Osmolality,Calculated 281.5 MOS/KG (273-304)
[2018-08-05] MEDS: ENOXAPARIN 40 MG/0.4 ML SYRINGE SUBCUT SCH (08:26)
[2018-08-05] MEDS: FUROSEMIDE 40 MG/4 ML VIAL IV SCH ×2 (08:26→17:53)
[2018-08-05] MEDS: FLUTICASONE 50 MCG NASAL SPRAY 16 GM BOTTLE BOTH NARES SCH (08:30)
[2018-08-05] MEDS: PANTOPRAZOLE 40 MG TABLET PO SCH ×2 (08:30→21:09)
[2018-08-05] MEDS: POTASSIUM CHLORIDE 20 MEQ TABLET PO SCH (08:33)
[2018-08-05] MEDS: ESCITALOPRAM 10 MG TABLET PO SCH ×2 (08:33→21:08)
[2018-08-05] MEDS: DICYCLOMINE 20 MG TABLET PO SCH (08:33)
[2018-08-05] MEDS: GABAPENTIN 600 MG TABLET PO SCH ×2 (08:33→21:08)
[2018-08-05] MEDS: ATORVASTATIN 10 MG TABLET PO SCH (08:33)
[2018-08-05] MEDS: CARVEDILOL 3.125 MG TABLET PO SCH ×2 (08:33→21:08)
[2018-08-05] MEDS ORDERED: NITROGLYCERIN 0.1 MG/HR PATCH TRANSDERM SCH (09:00)
[2018-08-05] MEDS: NITROGLYCERIN 0.2 MG/HR PATCH TRANSDERM SCH (09:44)
[2018-08-05] MEDS ORDERED: GLUCAGON 1 MG VIAL IM PRN (09:45)
[2018-08-05] MEDS ORDERED: DEXTROSE 50% 25 GM/50 ML SYRINGE IV PRN (09:45)
[2018-08-05] MEDS ORDERED: SODIUM CHLORIDE 0.9% 1,000 ML IV SCH (10:00)
[2018-08-05] MEDS: ASCORBIC ACID 500 MG TABLET PO SCH ×2 (10:45→21:09)
[2018-08-05] MEDS: SPIRONOLACTONE 25 MG TABLET PO SCH (10:45)
[2018-08-05] MEDS: TAMSULOSIN 0.4 MG CAPSULE PO SCH (18:00)
[2018-08-05] MEDS: ASPIRIN EC 81 MG TABLET PO SCH (21:08)
[2018-08-05] MEDS: CHLORHEXIDINE 0.12% ORAL RINSE 60 ML BOTTLE SWISH/SPIT SCH (21:09)
[2018-08-06 04:00] LABS: Allen Test Positive; Pt O2 Delivery Device Room Air
[2018-08-06 04:04] LABS: ABG Base Excess 3.9 MMOL/L (-2.5-2.5); ABG HCO3 27.8 MMOL/L (20-26); ABG PCO2 38.5 MM HG (35-48); ABG PH 7.466 (7.35-7.45); ABG PO2 63.7 MM HG (80-95)
[2018-08-06 04:19] LABS: Basophils # 0.1 10*3/uL (0.0-0.2); Basophils % 0.6 % (0.0-0.8); Eosinophils # 0.5 10*3/uL (0.0-0.87); Eosinophils % 5.4 % (0.00-10.9); Immature Granulocytes % 0.6 %; Immature Granulocytes Absolute 0.05 #; Lymphocytes # 1.3 10*3/uL (1.4-4.0); Lymphocytes % 15.2 % (21.2-54.2); Mean Corpuscular HGB Conc 30.3 GM/DL (32-36); Mean Corpuscular Volume 77.5 FL (87-102); Mean Platelet Volume 11.7 FL (9.6-12.0); Monocytes % 13.9 % (1.7-12.7); Neutrophils % 64.3 % (38.7-73.9); Platelet Count 244 T/CUMM (130-400); Red Blood Count 4.26 MC/CUMM (3.8-5.5); Red Cell Distribution Width 17.6 % (9.3-17.3); White Blood Count 8.7 T/CUMM (4-12)
[2018-08-06 04:38] LABS: Alanine Aminotransferase 17 U/L (16-61); Albumin 3.1 G/DL (3.4-5.0); Alkaline Phosphatase 78 U/L (45-117); Aspartate Amino Transferase 12 U/L (0-37); Bilirubin,Total < 0.39 MG/DL (0.2-1.0); Blood Urea Nitrogen 21 MG/DL (7-18); Calcium 8.8 MG/DL (8.5-10.1); Glucose 111 MG/DL (74-106); Osmolality,Calculated 282.4 MOS/KG (273-304); Total Protein 6.4 G/DL (6.4-8.3)
[2018-08-06] MEDS: ENOXAPARIN 40 MG/0.4 ML SYRINGE SUBCUT SCH (09:04)
[2018-08-06] MEDS: NITROGLYCERIN 0.2 MG/HR PATCH TRANSDERM SCH (09:05)
[2018-08-06] MEDS: FLUTICASONE 50 MCG NASAL SPRAY 16 GM BOTTLE BOTH NARES SCH (09:05)
[2018-08-06] MEDS: ESCITALOPRAM 10 MG TABLET PO SCH ×2 (09:06→20:51)
[2018-08-06] MEDS: ASCORBIC ACID 500 MG TABLET PO SCH ×2 (09:07→20:52)
[2018-08-06] MEDS: GABAPENTIN 600 MG TABLET PO SCH ×2 (09:07→20:51)
[2018-08-06] MEDS: PANTOPRAZOLE 40 MG TABLET PO SCH ×2 (09:07→20:52)
[2018-08-06] MEDS: FUROSEMIDE 40 MG/4 ML VIAL IV SCH ×2 (09:08→15:39)
[2018-08-06] MEDS: CARVEDILOL 3.125 MG TABLET PO SCH ×2 (09:08→20:50)
[2018-08-06] MEDS: SPIRONOLACTONE 25 MG TABLET PO SCH (09:08)
[2018-08-06] MEDS: CHLORHEXIDINE 0.12% ORAL RINSE 60 ML BOTTLE SWISH/SPIT SCH ×2 (09:08→20:51)
[2018-08-06] MEDS: DICYCLOMINE 20 MG TABLET PO SCH (09:18)
[2018-08-06] MEDS: POTASSIUM CHLORIDE 20 MEQ TABLET PO SCH (09:20)
[2018-08-06] MEDS: CHLORHEXIDINE 4% SOLN 118 ML BOTTLE TOP SCH ×3 (10:26→20:51)
[2018-08-06] MEDS ORDERED: DIAZEPAM 5 MG TABLET PO ONE (13:24)
[2018-08-06] MEDS ORDERED: FAMOTIDINE 20 MG TABLET PO ONE (13:24)
[2018-08-06] MEDS: TAMSULOSIN 0.4 MG CAPSULE PO SCH (18:09)
[2018-08-06] MEDS: ASPIRIN EC 81 MG TABLET PO SCH (20:50)
[2018-08-07] MEDS ORDERED: VANCOMYCIN 1,000 MG VIAL ONE (04:48)
[2018-08-07] MEDS ORDERED: PAPAVERINE 60 MG/2 ML VIAL ONE (04:48)
[2018-08-07] MEDS ORDERED: VANCOMYCIN INJ 1,000 MG in SODIUM CHLORIDE 0.9% 250 ML IV ONE (05:00)
[2018-08-07] MEDS ORDERED: FAMOTIDINE 20 MG TABLET PO ONE (05:00)
[2018-08-07] MEDS ORDERED: DIAZEPAM 5 MG TABLET PO ONE (05:00)
[2018-08-07] MEDS ORDERED: PHENYLEPHRINE DRIP 20 MG/250 ML PREMIX IV ONE (05:51)
[2018-08-07] MEDS ORDERED: HEPARIN/NACL 0.9% 2 UNITS/ML 500 ML IV ONE (05:51)
[2018-08-07] MEDS ORDERED: MINERAL OIL/PETROLATUM OPH OINT 3.5 GM TUBE ONE (05:52)
[2018-08-07] MEDS ORDERED: AMINOCAPROIC ACID 5,000 MG/20 ML VIAL ONE (05:52)
[2018-08-07] MEDS ORDERED: NITROGLYCERIN DRIP 50 MG/250 ML BOTTLE IV ONE (05:52)
[2018-08-07] MEDS ORDERED: MIDAZOLAM 10 MG/2 ML VIAL ONE ×2 (05:53)
[2018-08-07] MEDS ORDERED: SUFentanil 250 MCG/5 ML AMP ONE (05:53)
[2018-08-07 07:43] LABS: ABG Base Excess 0.7 MMOL/L (-2.5-2.5); ABG HCO3 25.1 MMOL/L (20-26); ABG PCO2 38.5 MM HG (35-48); ABG PH 7.422 (7.35-7.45); ABG TCO2 22.9 MMOL/L (23-27); Glucose Heart Surgery 130 MG/DL (74-106); Hematocrit Heart Surgery 29.3 PERCENT (42-52); Hemoglobin Heart Surgery 9.4 G/DL (14.0-18.0); Ionized Calcium Arterial 1.14 MMOL/L (1.21-1.46); PCO2 Patient Temp Arterial 38.5 MMHG; PH Patient Temp Arterial 7.422; Patient Temperature 37 CELCIUS; Potassium Heart/CVR 3.7 MMOL/L (3.5-5.1); Sodium Heart/CVR 137 MMOL/L (135-145)
[2018-08-07] MEDS ORDERED: POTASSIUM CHLORIDE RIDER 100 ML IV ONE (08:24)
[2018-08-07] MEDS ORDERED: CALCIUM CHLORIDE 1,000 MG/10 ML SYRINGE IV ONE (08:24)
[2018-08-07] MEDS ORDERED: SODIUM BICARBONATE 50 MEQ/50 ML VIAL IV ONE ×3 (08:24→17:52)
[2018-08-07] MEDS ORDERED: NITROPRUSSIDE 50 MG/2 ML VIAL ONE (08:24)
[2018-08-07] MEDS ORDERED: PHENYLEPHRINE DRIP 40 MG/250 ML PREMIX IV ONE (08:24)
[2018-08-07] MEDS ORDERED: EPINEPHrine 1 MG/10 ML SYRINGE ONE (08:25)
[2018-08-07] MEDS ORDERED: ALBUMIN 5% 12.5 GM/250 ML VIAL IV ONE (08:25)
[2018-08-07 09:07] LABS: Apearance,Urine CLEAR (Clear); Bilirubin,Urine Negative (Negative); Blood, Urine Negative (Negative); Glucose,Urine (UA) Negative (Negative); Ketones,Urine Negative (Negative); Mucus,Urine Occasional /LPF (Occasional); Nitrite,Urine Negative (Negative); Protein,Urine Negative; RBC,Urine <1 /HPF (0-4); Urine Color Yellow (Yellow); Urine Specific Gravity 1.016 (1.001-1.035); Urine Urobilinogen < 2.0 EU/DL (0.2-1.0); WBC,Urine 3 /HPF (0-6)
[2018-08-07 10:14] LABS: Hemoglobin Heart Surgery 10.4 G/DL (14.0-18.0); PCO2 Patient Temp Venous 41.1 MM HG; PH Patient Temp Venous 7.387; PO2 Patient Temp Venous 45.7 MM HG; Potassium Heart/CVR 4.9 MMOL/L (3.5-5.1); VBG Base Excess -0.2 MEQ/L (0-4); VBG Oxygen Saturation 84.1 %; VBG PCO2 45.3 MMHG (41-51); VBG PH 7.359; VBG PO2 52.4 MMHG (17-40)
[2018-08-07 10:47] LABS: Hematocrit Heart Surgery 28.4 PERCENT (42-52); Hemoglobin Heart Surgery 9.2 G/DL (14.0-18.0); PCO2 Patient Temp Venous 36.6 MM HG; PH Patient Temp Venous 7.444; PO2 Patient Temp Venous 42.1 MM HG; Potassium Heart/CVR 4.9 MMOL/L (3.5-5.1); VBG Base Excess 1.3 MEQ/L (0-4); VBG HCO3 25.3 MEQ/L (24-28); VBG Oxygen Saturation 82.8 %; VBG PCO2 40.4 MMHG (41-51); VBG PH 7.415; VBG PO2 48.3 MMHG (17-40)
[2018-08-07 11:19] LABS: Hematocrit Heart Surgery 30.2 PERCENT (42-52); Hemoglobin Heart Surgery 9.7 G/DL (14.0-18.0); PCO2 Patient Temp Venous 30.7 MM HG; PH Patient Temp Venous 7.51; PO2 Patient Temp Venous 36.8 MM HG; Potassium Heart/CVR 4.5 MMOL/L (3.5-5.1); VBG PCO2 37.2 MMHG (41-51); VBG PH 7.45; VBG PO2 48.5 MMHG (17-40)
[2018-08-07 11:48] LABS: Hemoglobin Heart Surgery 9.7 G/DL (14.0-18.0); PCO2 Patient Temp Venous 27.1 MM HG; PH Patient Temp Venous 7.549; PO2 Patient Temp Venous 33.1 MM HG; Potassium Heart/CVR 4.6 MMOL/L (3.5-5.1); VBG Base Excess 1.9 MEQ/L (0-4); VBG HCO3 25.9 MEQ/L (24-28); VBG Oxygen Saturation 81.7 %; VBG PCO2 32.9 MMHG (41-51); VBG PH 7.488; VBG PO2 43.7 MMHG (17-40)
[2018-08-07] MEDS ORDERED: MANNITOL 100 GM/500 ML BAG IV ONE (12:23)
[2018-08-07] MEDS ORDERED: methylPREDNISolone SOD SUC 1,000 MG/8 ML VIAL ONE (12:24)
[2018-08-07] MEDS ORDERED: PROTAMINE SULFATE 250 MG/25 ML VIAL IV ONE (12:24)
[2018-08-07] MEDS ORDERED: MAGNESIUM SULFATE 5 GM/10 ML VIAL IV ONE (12:24)
[2018-08-07] MEDS ORDERED: ALBUMIN 25% 25 GM/100 ML VIAL IV ONE (12:24)
[2018-08-07] MEDS ORDERED: DEXTROSE 5% KCL 20 MEQ 40 MEQ/2,000 ML BAG IV ONE (12:24)
[2018-08-07] MEDS ORDERED: HEPARIN 10,000 UNIT/10 ML VIAL ONE (12:24)
[2018-08-07] MEDS ORDERED: POTASSIUM CHLORIDE 20 MEQ/10 ML VIAL ONE (12:25)
[2018-08-07] MEDS ORDERED: FUROSEMIDE 20 MG/2 ML VIAL ONE (12:25)
[2018-08-07 12:33] LABS: ABG Base Excess -0.9 MMOL/L (-2.5-2.5); ABG HCO3 23.1 MMOL/L (20-26); ABG Oxygen Saturation 99.1 % (95-100); ABG PCO2 35.2 MM HG (35-48); ABG PH 7.434 (7.35-7.45); ABG PO2 301.3 MM HG (80-95); ABG TCO2 24.1 MMOL/L (23-27); Glucose Heart Surgery 255 MG/DL (74-106); Hemoglobin Heart Surgery 9.8 G/DL (14.0-18.0); Ionized Calcium Arterial 1.36 MMOL/L (1.21-1.46); PCO2 Patient Temp Arterial 35.2 MMHG; PH Patient Temp Arterial 7.434; PO2 Patient Temp Arterial 301.3 MM HG; Patient Temperature 37 CELCIUS; Potassium Heart/CVR 3.9 MMOL/L (3.5-5.1); Sodium Heart/CVR 134 MMOL/L (135-145)
[2018-08-07] MEDS ORDERED: THROMBIN TOPICAL (RECOMBINANT) 5,000 UNIT VIAL TOP ONE (12:46)
[2018-08-07] MEDS ORDERED: PROTAMINE SULFATE 50 MG/5 ML VIAL IV ONE ×2 (13:23→13:45)
[2018-08-07] MEDS ORDERED: DEXTROSE 50% 25 GM/50 ML SYRINGE IV PRN ×2 (13:45)
[2018-08-07] MEDS ORDERED: ACETAMINOPHEN 650 MG SUPP RECTAL PRN (13:45)
[2018-08-07] MEDS ORDERED: MAGNESIUM SULF RIDER 2 GM in PREMIX 1 EACH IV PRN (13:45)
[2018-08-07] MEDS ORDERED: CALCIUM CHLORIDE 1,000 MG/10 ML SYRINGE IV PRN (13:45)
[2018-08-07] MEDS ORDERED: VECURONIUM 10 MG VIAL IV PRN ×2 (13:45)
[2018-08-07] MEDS ORDERED: PHENYLEPHRINE DRIP 40 MG/250 ML PREMIX IV PRN (13:45)
[2018-08-07] MEDS ORDERED: ONDANSETRON 4 MG/2 ML VIAL IV PRN (13:45)
[2018-08-07] MEDS: SODIUM CHLORIDE 0.45% 1,000 ML IV SCH ×2 (13:45)
[2018-08-07] MEDS ORDERED: INSULIN REGULAR 100 UNIT/ML IV PRN (13:45)
[2018-08-07] MEDS ORDERED: LACTATED RINGERS 250 ML IV PRN (13:45)
[2018-08-07] MEDS ORDERED: MAGNESIUM SULF RIDER 4 GM in PREMIX 1 EACH IV PRN (13:45)
[2018-08-07] MEDS ORDERED: INSULIN REGULAR 100 UNIT/ML IV ONE (13:45)
[2018-08-07 14:00] LABS: ABG Base Excess 0.3 MMOL/L (-2.5-2.5); ABG HCO3 24.7 MMOL/L (20-26); ABG Oxygen Saturation 99.2 % (95-100); ABG PH 7.381 (7.35-7.45); ABG TCO2 23.6 MMOL/L (23-27); Glucose Heart Surgery 271 MG/DL (74-106); Hematocrit Heart Surgery 27.4 PERCENT (42-52); Hemoglobin Heart Surgery 8.8 G/DL (14.0-18.0); Potassium Heart/CVR 3.9 MMOL/L (3.5-5.1)
[2018-08-07 14:04] LABS: Basophils % 0.2 % (0.0-0.8); Eosinophils # 0.1 10*3/uL (0.0-0.87); Eosinophils % 0.3 % (0.00-10.9); Hematocrit 28.8 VOL% (42.0-52.0); Hemoglobin 8.7 GM/DL (14.0-18.0); Immature Granulocytes % 1.6 %; Immature Granulocytes Absolute 0.26 #; Lymphocytes # 0.5 10*3/uL (1.4-4.0); Lymphocytes % 2.8 % (21.2-54.2); Mean Corpuscular HGB Conc 30.2 GM/DL (32-36); Monocytes % 6.1 % (1.7-12.7)
[2018-08-07 14:06] LABS: Platelet Count 170 T/CUMM (130-400); White Blood Count 16.3 T/CUMM (4-12)
[2018-08-07] MEDS ORDERED: CALCIUM CHLORIDE 1,000 MG/10 ML VIAL IV ONE (14:10)
[2018-08-07] MEDS ORDERED: SEVOFLURANE 1 UNIT/15 MINUTE INH ONE (14:10)
[2018-08-07 14:11] LABS: INR 1.1; Partial Thromboplastin Time 29.6 SECS (0-40)
[2018-08-07] MEDS ORDERED: PHENYLEPHRINE 10 MG/1 ML VIAL IV ONE (14:11)
[2018-08-07] MEDS ORDERED: ETOMIDATE 40 MG/20 ML VIAL IV ONE (14:11)
[2018-08-07] MEDS ORDERED: ROCURONIUM 100 MG/10 ML VIAL IV ONE (14:11)
[2018-08-07] MEDS ORDERED: SODIUM CHLORIDE 0.9% 1,000 ML IV ONE (14:11)
[2018-08-07] MEDS ORDERED: PHENYLEPHRINE 1 MG/10 ML SYRINGE IV ONE (14:11)
[2018-08-07] MEDS ORDERED: SODIUM CHLORIDE 0.9% 100 ML IV ONE (14:11)
[2018-08-07] MEDS ORDERED: SODIUM CHLORIDE 0.9% 250 ML IV ONE (14:11)
[2018-08-07] MEDS ORDERED: ePHEDrine 50 MG/ML AMP ONE (14:11)
[2018-08-07 14:25] LABS: Anisocytosis 1+; Lymphocytes 3 % (20-55); Segmented Neutrophils 90 % (50-85)
[2018-08-07 14:26] LABS: Hypochromasia 1+; Macrocytosis 1+; Ovalocytes Slight; Platelet Estimate Adequate
[2018-08-07 14:27] LABS: Total Cells Counted 100
[2018-08-07 14:29] LABS: CKMB % 7.5 %
[2018-08-07 14:30] LABS: Troponin I 5.17 NG/ML (0.00-0.045)
[2018-08-07 14:33] LABS: Albumin 3.2 G/DL (3.4-5.0); Bilirubin,Total 1.1 MG/DL (0.2-1.0); Calcium 9.4 MG/DL (8.5-10.1); Osmolality,Calculated 294.1 MOS/KG (273-304); Total Protein 5.7 G/DL (6.4-8.3)
[2018-08-07] MEDS ORDERED: LACTATED RINGERS 1,000 ML IV ONE ×2 (15:00→16:00)
[2018-08-07] MEDS: INSULIN REGULAR DRIP 100 ML IV SCH (15:10)
[2018-08-07] MEDS: ALBUMIN 5% 12.5 GM in PREMIX 1 EACH IV PRN ×2 (16:10→18:10)
[2018-08-07 16:22] LABS: ABG Base Excess 0.7 MMOL/L (-2.5-2.5); ABG Oxygen Saturation 98.4 % (95-100); ABG PCO2 45.2 MM HG (35-48); ABG PH 7.371 (7.35-7.45); ABG TCO2 24.1 MMOL/L (23-27); Glucose Heart Surgery 218 MG/DL (74-106); Hematocrit Heart Surgery 29.1 PERCENT (42-52); Hemoglobin Heart Surgery 9.4 G/DL (14.0-18.0); Potassium Heart/CVR 4.2 MMOL/L (3.5-5.1)
[2018-08-07] MEDS: POTASSIUM CHLORIDE RIDER 10 MEQ in PREMIX 1 EACH IV PRN (16:35)
[2018-08-07] MEDS ORDERED: PROPOFOL 1,000 MG/100 ML BOTTLE IV ONE (17:05)
[2018-08-07 17:13] LABS: ABG Base Excess -6.2 MMOL/L (-2.5-2.5); ABG HCO3 19.3 MMOL/L (20-26); ABG Oxygen Saturation 99.9 % (95-100); ABG PCO2 56.7 MM HG (35-48); ABG TCO2 20.7 MMOL/L (23-27); Glucose Heart Surgery 263 MG/DL (74-106); Hematocrit Heart Surgery 34.1 PERCENT (42-52); Hemoglobin Heart Surgery 11.1 G/DL (14.0-18.0); Potassium Heart/CVR 4.3 MMOL/L (3.5-5.1)
[2018-08-07 17:17] LABS: ABG PH 7.206 (7.35-7.45)
[2018-08-07] MEDS: MIDAZOLAM 10 MG/2 ML VIAL IV PRN (17:30)
[2018-08-07] MEDS: PROPOFOL 1,000 MG/100 ML BOTTLE IV SCH (17:30)
[2018-08-07 18:34] LABS: ABG Base Excess 2.5 MMOL/L (-2.5-2.5); ABG HCO3 27.5 MMOL/L (20-26); ABG Oxygen Saturation 97.8 % (95-100); ABG PCO2 44.7 MM HG (35-48); ABG PH 7.407 (7.35-7.45); ABG PO2 128.2 MM HG (80-95); ABG TCO2 28.9 MMOL/L (23-27); Glucose Heart Surgery 172 MG/DL (74-106); Hemoglobin Heart Surgery 8.8 G/DL (14.0-18.0)
[2018-08-07] MEDS: POTASSIUM CHLORIDE RIDER 20 MEQ in PREMIX 1 EACH IV PRN (19:14)
[2018-08-07] MEDS: CHLORHEXIDINE 0.12% ORAL RINSE 60 ML BOTTLE SWISH/SPIT SCH (20:27)
[2018-08-07 21:32] LABS: ABG Base Excess 3.5 MMOL/L (-2.5-2.5); ABG HCO3 27.4 MMOL/L (20-26); ABG Oxygen Saturation 98.3 % (95-100); ABG PCO2 39.1 MM HG (35-48); ABG PH 7.464 (7.35-7.45); ABG PO2 147.4 MM HG (80-95); ABG TCO2 28.6 MMOL/L (23-27); Glucose Heart Surgery 132 MG/DL (74-106); Hemoglobin Heart Surgery 9.7 G/DL (14.0-18.0); Potassium Heart/CVR 4.4 MMOL/L (3.5-5.1)
[2018-08-07 21:48] LABS: Basophils % 0.1 % (0.0-0.8); Hematocrit 28.3 VOL% (42.0-52.0); Hemoglobin 8.7 GM/DL (14.0-18.0); Immature Granulocytes % 0.5 %; Immature Granulocytes Absolute 0.08 #; Lymphocytes # 0.6 10*3/uL (1.4-4.0); Lymphocytes % 3.6 % (21.2-54.2); Mean Corpuscular HGB Conc 30.7 GM/DL (32-36); Mean Corpuscular Volume 79.7 FL (87-102); Mean Platelet Volume 10.7 FL (9.6-12.0); Monocytes % 4.9 % (1.7-12.7); Neutrophils % 90.9 % (38.7-73.9); Platelet Count 134 T/CUMM (130-400); Red Blood Count 3.55 MC/CUMM (3.8-5.5); Red Cell Distribution Width 17.2 % (9.3-17.3); White Blood Count 15.4 T/CUMM (4-12)
[2018-08-07 22:07] LABS: CKMB % 8.7 %
[2018-08-07 22:09] LABS: Troponin I 18.4 NG/ML (0.00-0.045)
[2018-08-07] MEDS ORDERED: FUROSEMIDE 40 MG/4 ML VIAL IV PRN (22:22)
[2018-08-07] MEDS ORDERED: FUROSEMIDE 40 MG/4 ML VIAL IV ONE (22:22)
[2018-08-07 22:35] LABS: Lymphocytes 5 % (20-55); Segmented Neutrophils 92 % (50-85)
[2018-08-07 22:38] LABS: Hypochromasia 1+; Platelet Estimate Adequate
[2018-08-07 22:39] LABS: Acanthocytes Few; Elliptocytes Few
[2018-08-07 22:41] LABS: Total Cells Counted 100
[2018-08-08] MEDS: VANCOMYCIN INJ 1,000 MG in SODIUM CHLORIDE 0.9% 250 ML IV SCH ×2 (00:42→15:30)
[2018-08-08 00:50] LABS: Hematocrit 30.9 VOL% (42.0-52.0); Hemoglobin 9.9 GM/DL (14.0-18.0)
[2018-08-08 04:20] LABS: ABG HCO3 27.1 MMOL/L (20-26); ABG Oxygen Saturation 98.8 % (95-100); ABG PCO2 39.9 MM HG (35-48); ABG PH 7.442 (7.35-7.45); ABG TCO2 24.7 MMOL/L (23-27); Glucose Heart Surgery 150 MG/DL (74-106); Hematocrit Heart Surgery 30.5 PERCENT (42-52); Hemoglobin Heart Surgery 9.9 G/DL (14.0-18.0); Potassium Heart/CVR 4.1 MMOL/L (3.5-5.1)
[2018-08-08 04:32] LABS: Basophils % 0.1 % (0.0-0.8); Hematocrit 30.2 VOL% (42.0-52.0); Hemoglobin 9.8 GM/DL (14.0-18.0); Immature Granulocytes % 0.6 %; Immature Granulocytes Absolute 0.09 #; Lymphocytes # 0.9 10*3/uL (1.4-4.0); Lymphocytes % 5.3 % (21.2-54.2); Mean Corpuscular HGB Conc 32.5 GM/DL (32-36); Mean Corpuscular Volume 80.7 FL (87-102); Mean Platelet Volume 11.5 FL (9.6-12.0); Platelet Count 134 T/CUMM (130-400); Red Blood Count 3.74 MC/CUMM (3.8-5.5); Red Cell Distribution Width 18.2 % (9.3-17.3); White Blood Count 16.2 T/CUMM (4-12)
[2018-08-08 04:56] LABS: Albumin 3.1 G/DL (3.4-5.0); Bilirubin,Direct 0.3 MG/DL (0.0-0.20); Bilirubin,Total 1.2 MG/DL (0.2-1.0); Calcium 8.8 MG/DL (8.5-10.1); Osmolality,Calculated 291.7 MOS/KG (273-304); Total Protein 5.6 G/DL (6.4-8.3)
[2018-08-08] MEDS: POTASSIUM CHLORIDE RIDER 20 MEQ in PREMIX 1 EACH IV PRN ×2 (05:06→19:02)
[2018-08-08] MEDS: ALBUMIN 5% 12.5 GM in PREMIX 1 EACH IV PRN ×3 (05:29→18:58)
[2018-08-08] MEDS: PROPOFOL 1,000 MG/100 ML BOTTLE IV SCH ×2 (05:48→17:46)
[2018-08-08 07:36] LABS: CKMB % 10.3 %
[2018-08-08 07:43] LABS: Troponin I 35.7 NG/ML (0.00-0.045)
[2018-08-08 09:46] LABS: Hematocrit Heart Surgery 27.3 PERCENT (42-52); Hemoglobin Heart Surgery 8.8 G/DL (14.0-18.0); PCO2 Patient Temp Venous 45.2 MM HG; PH Patient Temp Venous 7.41; PO2 Patient Temp Venous 31.6 MM HG; Potassium Heart/CVR 4.2 MMOL/L (3.5-5.1); VBG Base Excess 3.5 MEQ/L (0-4); VBG Oxygen Saturation 57.3 %; VBG PCO2 45.2 MMHG (41-51); VBG PH 7.41; VBG PO2 31.6 MMHG (17-40)
[2018-08-08] MEDS: CHLORHEXIDINE 0.12% ORAL RINSE 60 ML BOTTLE SWISH/SPIT SCH ×2 (10:30→20:13)
[2018-08-08] MEDS: DEXMEDETOMIDINE 200 MCG in SODIUM CHLORIDE 0.9% 48 ML IV PRN ×3 (10:58→21:08)
[2018-08-08] MEDS: MIDAZOLAM 10 MG/2 ML VIAL IV PRN (12:30)
[2018-08-08] MEDS: MIDAZOLAM 2 MG/2 ML VIAL IV PRN ×5 (13:45→20:12)
[2018-08-08 15:53] LABS: CKMB % 10.7 %
[2018-08-08 15:57] LABS: Troponin I 33.4 NG/ML (0.00-0.045)
[2018-08-08] MEDS: SODIUM CHLORIDE 0.45% 1,000 ML IV SCH ×2 (16:05→16:06)
[2018-08-08] MEDS: INSULIN REGULAR DRIP 100 ML IV SCH (16:06)
[2018-08-08 18:28] LABS: ABG Base Excess 4.1 MMOL/L (-2.5-2.5); ABG HCO3 27.2 MMOL/L (20-26); ABG Oxygen Saturation 97.8 % (95-100); ABG PCO2 35.2 MM HG (35-48); ABG PH 7.506 (7.35-7.45); ABG PO2 115.5 MM HG (80-95); ABG TCO2 28.3 MMOL/L (23-27); Glucose Heart Surgery 123 MG/DL (74-106)
[2018-08-08] MEDS ORDERED: DOBUTamine 500 MG/250 ML PREMIX IV PRN (19:40)
[2018-08-08] MEDS ORDERED: FUROSEMIDE 40 MG/4 ML VIAL IV ONE (19:40)
[2018-08-08] MEDS ORDERED: NITROGLYCERIN DRIP 50 MG/250 ML BOTTLE IV PRN (21:10)
[2018-08-08] MEDS: MORPHINE 10 MG/1 ML VIAL IV PRN (21:41)
[2018-08-08 23:40] LABS: Hematocrit 31.9 VOL% (42.0-52.0)
[2018-08-09] MEDS: VANCOMYCIN INJ 1,000 MG in SODIUM CHLORIDE 0.9% 250 ML IV SCH ×2 (01:01→13:11)
[2018-08-09] MEDS: INSULIN REGULAR DRIP 100 ML IV SCH (01:23)
[2018-08-09] MEDS: DEXMEDETOMIDINE 200 MCG in SODIUM CHLORIDE 0.9% 48 ML IV PRN (03:26)
[2018-08-09 03:29] LABS: ABG Base Excess 2.5 MMOL/L (-2.5-2.5); ABG HCO3 26.6 MMOL/L (20-26); ABG PCO2 36.3 MM HG (35-48); ABG PH 7.465 (7.35-7.45); ABG TCO2 23.6 MMOL/L (23-27)
[2018-08-09 03:35] LABS: Basophils % 0.2 % (0.0-0.8); Eosinophils % 0.1 % (0.00-10.9); Hematocrit 31.7 VOL% (42.0-52.0); Hemoglobin 9.9 GM/DL (14.0-18.0); Immature Granulocytes % 0.7 %; Immature Granulocytes Absolute 0.12 #; Lymphocytes # 1.5 10*3/uL (1.4-4.0); Lymphocytes % 9.4 % (21.2-54.2); Mean Corpuscular HGB Conc 31.2 GM/DL (32-36); Mean Corpuscular Volume 82.1 FL (87-102); Mean Platelet Volume 11.7 FL (9.6-12.0); Monocytes % 10.6 % (1.7-12.7); Platelet Count 115 T/CUMM (130-400); Red Blood Count 3.86 MC/CUMM (3.8-5.5); Red Cell Distribution Width 18.8 % (9.3-17.3); White Blood Count 16.2 T/CUMM (4-12)
[2018-08-09 03:42] LABS: Albumin 3.2 G/DL (3.4-5.0); Bilirubin,Direct 0.32 MG/DL (0.0-0.20); Bilirubin,Total 1.1 MG/DL (0.2-1.0); Calcium 8.4 MG/DL (8.5-10.1); Osmolality,Calculated 291.8 MOS/KG (273-304); Total Protein 5.6 G/DL (6.4-8.3)
[2018-08-09] MEDS: POTASSIUM CHLORIDE RIDER 20 MEQ in PREMIX 1 EACH IV PRN (05:22)
[2018-08-09] MEDS: ALBUMIN 5% 12.5 GM in PREMIX 1 EACH IV PRN (06:14)
[2018-08-09] MEDS ORDERED: HEPARIN/NACL 0.9% 2 UNITS/ML 500 ML IV ONE (07:36)
[2018-08-09] MEDS ORDERED: NITROPRUSSIDE 50 MG/2 ML VIAL ONE (08:27)
[2018-08-09] MEDS: NITROPRUSSIDE 100 MG in DEXTROSE 5% 250 ML IV PRN (08:46)
[2018-08-09 09:31] LABS: ABG Base Excess 0.3 MMOL/L (-2.5-2.5); ABG HCO3 24.7 MMOL/L (20-26); ABG PCO2 37.9 MM HG (35-48); ABG TCO2 22.3 MMOL/L (23-27)
[2018-08-09] MEDS: MORPHINE 4 MG/1 ML VIAL IV PRN ×3 (10:48→19:42)
[2018-08-09] MEDS: CHLORHEXIDINE 0.12% ORAL RINSE 60 ML BOTTLE SWISH/SPIT SCH ×2 (10:51→21:58)
[2018-08-09] MEDS: SODIUM CHLORIDE 0.45% 1,000 ML IV SCH (10:57)
[2018-08-09 11:46] LABS: ABG HCO3 23.6 MMOL/L (20-26); ABG Oxygen Saturation 97.8 % (95-100); ABG PCO2 37.2 MM HG (35-48); ABG PH 7.406 (7.35-7.45); ABG TCO2 21.2 MMOL/L (23-27)
[2018-08-09] MEDS: KETOROLAC 30 MG/1 ML VIAL IV PRN (12:46)
[2018-08-09] MEDS: HALOPERIDOL 5 MG/ML AMP IV PRN (12:54)
[2018-08-09] MEDS: INSULIN REGULAR 100 UNIT/ML SUBCUT SCH ×2 (14:33→19:48)
[2018-08-10] MEDS: INSULIN REGULAR 100 UNIT/ML SUBCUT SCH ×4 (01:19→19:00)
[2018-08-10] MEDS: NITROPRUSSIDE 100 MG in DEXTROSE 5% 250 ML IV PRN ×3 (03:15→17:31)
[2018-08-10] MEDS: MORPHINE 4 MG/1 ML VIAL IV PRN ×2 (04:04→11:44)
[2018-08-10 05:00] LABS: Basophils # 0.1 10*3/uL (0.0-0.2); Basophils % 0.4 % (0.0-0.8); Eosinophils % 0.2 % (0.00-10.9); Hematocrit 31.5 VOL% (42.0-52.0); Hemoglobin 9.7 GM/DL (14.0-18.0); Immature Granulocytes % 1.4 %; Immature Granulocytes Absolute 0.24 #; Lymphocytes # 1.1 10*3/uL (1.4-4.0); Lymphocytes % 6.5 % (21.2-54.2); Mean Corpuscular HGB Conc 30.8 GM/DL (32-36); Mean Corpuscular Volume 83.1 FL (87-102); Mean Platelet Volume 11.5 FL (9.6-12.0); Monocytes % 11.9 % (1.7-12.7); NRBC # 0.02 10*3/uL; Neutrophils % 79.6 % (38.7-73.9); Platelet Count 123 T/CUMM (130-400); Red Blood Count 3.79 MC/CUMM (3.8-5.5); Red Cell Distribution Width 19.9 % (9.3-17.3); White Blood Count 17.1 T/CUMM (4-12)
[2018-08-10 05:35] LABS: Albumin 3.4 G/DL (3.4-5.0); Bilirubin,Direct 0.24 MG/DL (0.0-0.20); Bilirubin,Total 0.8 MG/DL (0.2-1.0); Calcium 8.6 MG/DL (8.5-10.1); Osmolality,Calculated 295.7 MOS/KG (273-304); Total Protein 6.1 G/DL (6.4-8.3)
[2018-08-10] MEDS ORDERED: FUROSEMIDE 40 MG/4 ML VIAL IV ONE ×2 (06:31→16:00)
[2018-08-10] MEDS: methylPREDNISolone SOD SUC 40 MG/1 ML VIAL IV SCH ×3 (07:15→23:34)
[2018-08-10] MEDS: HALOPERIDOL 5 MG/ML AMP IV PRN (07:30)
[2018-08-10] MEDS: CHLORHEXIDINE 0.12% ORAL RINSE 60 ML BOTTLE SWISH/SPIT SCH ×2 (09:40→20:16)
[2018-08-10] MEDS: VANCOMYCIN INJ 1,250 MG in SODIUM CHLORIDE 0.9% 250 ML IV SCH ×2 (09:40→20:15)
[2018-08-10] MEDS: SODIUM CHLORIDE 0.45% 1,000 ML IV SCH (09:41)
[2018-08-10] MEDS: KETOROLAC 30 MG/1 ML VIAL IV PRN ×2 (09:41→16:04)
[2018-08-10] MEDS: CARVEDILOL 3.125 MG TABLET PO SCH ×2 (09:43→20:16)
[2018-08-10] MEDS ORDERED: NITROPRUSSIDE 50 MG/2 ML VIAL ONE (10:32)
[2018-08-11] MEDS: INSULIN REGULAR 100 UNIT/ML SUBCUT SCH ×5 (01:07→23:18)
[2018-08-11 04:33] LABS: Basophils % 0.1 % (0.0-0.8); Immature Granulocytes % 1.7 %; Immature Granulocytes Absolute 0.27 #; Lymphocytes # 0.7 10*3/uL (1.4-4.0); Lymphocytes % 4.5 % (21.2-54.2); Mean Corpuscular HGB Conc 31.3 GM/DL (32-36); Mean Corpuscular Volume 83.3 FL (87-102); Mean Platelet Volume 11.6 FL (9.6-12.0); NRBC # 0.04 10*3/uL; Neutrophils % 87.7 % (38.7-73.9); Platelet Count 137 T/CUMM (130-400); Red Blood Count 3.84 MC/CUMM (3.8-5.5); Red Cell Distribution Width 20.6 % (9.3-17.3); White Blood Count 16.3 T/CUMM (4-12)
[2018-08-11 04:59] LABS: Calcium 8.6 MG/DL (8.5-10.1); Osmolality,Calculated 292.8 MOS/KG (273-304)
[2018-08-11 05:19] LABS: Acanthocytes 1+; Anisocytosis 1+; Ovalocytes 1+; Platelet Estimate Adequate
[2018-08-11] MEDS: NITROPRUSSIDE 100 MG in DEXTROSE 5% 250 ML IV PRN (07:01)
[2018-08-11] MEDS: methylPREDNISolone SOD SUC 40 MG/1 ML VIAL IV SCH ×3 (07:02→23:03)
[2018-08-11] MEDS: POTASSIUM CHLORIDE RIDER 20 MEQ in PREMIX 1 EACH IV PRN (07:03)
[2018-08-11] MEDS: VANCOMYCIN INJ 1,250 MG in SODIUM CHLORIDE 0.9% 250 ML IV SCH ×2 (09:30→21:27)
[2018-08-11] MEDS: LOSARTAN 25 MG TABLET PO SCH (09:40)
[2018-08-11] MEDS: CARVEDILOL 6.25 MG TABLET PO SCH ×2 (09:40→21:36)
[2018-08-11] MEDS: CHLORHEXIDINE 0.12% ORAL RINSE 60 ML BOTTLE SWISH/SPIT SCH ×2 (09:41→21:37)
[2018-08-11] MEDS: ESCITALOPRAM 10 MG TABLET PO SCH ×2 (11:24→21:35)
[2018-08-11] MEDS: hydrALAZINE 20 MG/1 ML VIAL IV PRN (12:19)
[2018-08-11] MEDS: SODIUM CHLORIDE 0.45% 1,000 ML IV SCH (15:23)
[2018-08-12 05:55] LABS: Basophils % 0.2 % (0.0-0.8); Hematocrit 35.7 VOL% (42.0-52.0); Hemoglobin 10.8 GM/DL (14.0-18.0); Immature Granulocytes % 2.1 %; Immature Granulocytes Absolute 0.39 #; Lymphocytes # 0.8 10*3/uL (1.4-4.0); Lymphocytes % 4.2 % (21.2-54.2); Mean Corpuscular HGB Conc 30.3 GM/DL (32-36); Mean Corpuscular Volume 85.6 FL (87-102); Mean Platelet Volume 11.3 FL (9.6-12.0); Monocytes % 5.1 % (1.7-12.7); NRBC # 0.04 10*3/uL; Neutrophils % 88.4 % (38.7-73.9); Platelet Count 154 T/CUMM (130-400); Red Blood Count 4.17 MC/CUMM (3.8-5.5); Red Cell Distribution Width 21.5 % (9.3-17.3); White Blood Count 18.8 T/CUMM (4-12)
[2018-08-12 06:34] LABS: Anisocytosis 1+; Lymphocytes 7 % (20-55); Myelocytes 1 %; Segmented Neutrophils 87 % (50-85); Total Cells Counted 100
[2018-08-12 06:35] LABS: Ovalocytes Slight
[2018-08-12 06:39] LABS: Hypochromasia Slight; Microcytosis Slight; Polychromasia Slight; Prealbumin 14.3 MG/DL (20-40)
[2018-08-12 06:40] LABS: Platelet Estimate Normal
[2018-08-12 06:47] LABS: Albumin 3.5 G/DL (3.4-5.0); Bilirubin,Total 1.3 MG/DL (0.2-1.0); Calcium 9.5 MG/DL (8.5-10.1); Osmolality,Calculated 299.7 MOS/KG (273-304); Total Protein 6.2 G/DL (6.4-8.3)
[2018-08-12] MEDS: methylPREDNISolone SOD SUC 40 MG/1 ML VIAL IV SCH ×3 (07:03→22:11)
[2018-08-12] MEDS: INSULIN REGULAR 100 UNIT/ML SUBCUT SCH ×3 (07:04→19:26)
[2018-08-12] MEDS: VANCOMYCIN INJ 1,250 MG in SODIUM CHLORIDE 0.9% 250 ML IV SCH ×2 (09:31→19:06)
[2018-08-12] MEDS: ESCITALOPRAM 10 MG TABLET PO SCH (09:31)
[2018-08-12] MEDS: CARVEDILOL 6.25 MG TABLET PO SCH ×2 (09:31→22:14)
[2018-08-12] MEDS: CHLORHEXIDINE 0.12% ORAL RINSE 60 ML BOTTLE SWISH/SPIT SCH ×2 (09:32→22:14)
[2018-08-12] MEDS: LOSARTAN 25 MG TABLET PO SCH (09:32)
[2018-08-12] MEDS: FUROSEMIDE 40 MG/4 ML VIAL IV SCH (09:32)
[2018-08-12 13:10] LABS: Apearance,Urine CLEAR (Clear); Bacteria,Urine Occasional /HPF (Few); Bilirubin,Urine Negative (Negative); Blood, Urine Negative (Negative); Glucose,Urine (UA) Negative (Negative); Hyaline Casts,Urine 5 /LPF (0-3); Ketones,Urine Negative (Negative); Nitrite,Urine Negative (Negative); Protein,Urine Negative; RBC,Urine 2 /HPF (0-4); Squamous Epithelial Cell,Urine Occasional /HPF (0-10); Urine Color Yellow (Yellow); WBC,Urine 1 /HPF (0-6)
[2018-08-12] MEDS: SODIUM CHLORIDE 0.45% 1,000 ML IV SCH (19:11)
[2018-08-12] MEDS ORDERED: MINERAL OIL/PETROLATUM OPH OINT 3.5 GM TUBE BOTH EYES PRN (19:27)
[2018-08-13] MEDS: INSULIN REGULAR 100 UNIT/ML SUBCUT SCH ×5 (00:49→23:57)
[2018-08-13] MEDS: hydrALAZINE 20 MG/1 ML VIAL IV PRN ×2 (03:01→17:20)
[2018-08-13 05:53] LABS: Calcium 9.6 MG/DL (8.5-10.1); Osmolality,Calculated 310.3 MOS/KG (273-304)
[2018-08-13] MEDS: methylPREDNISolone SOD SUC 40 MG/1 ML VIAL IV SCH ×3 (06:26→21:50)
[2018-08-13] MEDS: FUROSEMIDE 40 MG/4 ML VIAL IV SCH (09:19)
[2018-08-13] MEDS: CHLORHEXIDINE 0.12% ORAL RINSE 60 ML BOTTLE SWISH/SPIT SCH ×2 (09:19→21:56)
[2018-08-13] MEDS: LOSARTAN 25 MG TABLET PO SCH ×2 (09:19→21:50)
[2018-08-13] MEDS: ESCITALOPRAM 10 MG TABLET PO SCH (09:19)
[2018-08-13] MEDS: CARVEDILOL 6.25 MG TABLET PO SCH ×2 (09:19→21:50)
[2018-08-13] MEDS: VANCOMYCIN INJ 1,250 MG in SODIUM CHLORIDE 0.9% 250 ML IV SCH ×2 (09:19→20:02)
[2018-08-13] MEDS: CYANOCOBALAMIN 1000 MCG/1 ML VIAL IM SCH (09:20)
[2018-08-13] MEDS: ALBUTEROL/IPRATROPIUM 3 ML NEB RESP TX SCH ×4 (10:52→23:50)
[2018-08-14] MEDS: ALBUTEROL/IPRATROPIUM 3 ML NEB RESP TX SCH ×5 (03:15→20:26)
[2018-08-14 04:45] LABS: Calcium 9.4 MG/DL (8.5-10.1); Osmolality,Calculated 309.3 MOS/KG (273-304)
[2018-08-14] MEDS: INSULIN REGULAR 100 UNIT/ML SUBCUT SCH ×3 (05:58→18:37)
[2018-08-14 06:13] LABS: Basophils # 0.1 10*3/uL (0.0-0.2); Basophils % 0.2 % (0.0-0.8); Hematocrit 34.8 VOL% (42.0-52.0); Hemoglobin 10.7 GM/DL (14.0-18.0); Immature Granulocytes % 5.1 %; Immature Granulocytes Absolute 1.08 #; Lymphocytes # 0.8 10*3/uL (1.4-4.0); Lymphocytes % 3.5 % (21.2-54.2); Mean Corpuscular HGB Conc 30.7 GM/DL (32-36); Mean Corpuscular Volume 85.9 FL (87-102); Mean Platelet Volume 12.8 FL (9.6-12.0); Monocytes % 7.8 % (1.7-12.7); NRBC # 0.23 10*3/uL; Neutrophils % 83.4 % (38.7-73.9); Platelet Count 141 T/CUMM (130-400); Red Blood Count 4.05 MC/CUMM (3.8-5.5); Red Cell Distribution Width 22.5 % (9.3-17.3); White Blood Count 21.4 T/CUMM (4-12)
[2018-08-14] MEDS: methylPREDNISolone SOD SUC 40 MG/1 ML VIAL IV SCH ×3 (06:33→23:12)
[2018-08-14 07:29] LABS: Band Neutrophils 1 % (0-10); Hypochromasia 1+; Lymphocytes 8 % (20-55); Microcytosis Slight; Nucleated Red Blood Cells 3 (0-5); Platelet Estimate Adequate; Segmented Neutrophils 82 % (50-85); Total Cells Counted 100
[2018-08-14] MEDS: VANCOMYCIN INJ 1,250 MG in SODIUM CHLORIDE 0.9% 250 ML IV SCH ×2 (08:18→21:23)
[2018-08-14] MEDS: ESCITALOPRAM 10 MG TABLET PO SCH (08:22)
[2018-08-14] MEDS: LOSARTAN 25 MG TABLET PO SCH ×2 (08:23→21:31)
[2018-08-14] MEDS: CARVEDILOL 6.25 MG TABLET PO SCH ×2 (08:23→21:31)
[2018-08-14] MEDS: FUROSEMIDE 40 MG/4 ML VIAL IV SCH (08:24)
[2018-08-14] MEDS: CYANOCOBALAMIN 1000 MCG/1 ML VIAL IM SCH (08:24)
[2018-08-14] MEDS: CHLORHEXIDINE 0.12% ORAL RINSE 60 ML BOTTLE SWISH/SPIT SCH ×2 (08:25→21:31)
[2018-08-14] MEDS: hydrALAZINE 20 MG/1 ML VIAL IV PRN (11:04)
[2018-08-14] MEDS: ENOXAPARIN 40 MG/0.4 ML SYRINGE SUBCUT SCH (18:37)
[2018-08-14] MEDS ORDERED: HALOPERIDOL 5 MG/ML AMP IV ONE (19:47)
[2018-08-15] MEDS: ALBUTEROL/IPRATROPIUM 3 ML NEB RESP TX SCH ×7 (00:19→22:49)
[2018-08-15] MEDS: INSULIN REGULAR 100 UNIT/ML SUBCUT SCH ×4 (01:03→18:16)
[2018-08-15 04:59] LABS: Albumin 3.8 G/DL (3.4-5.0); Calcium 9.8 MG/DL (8.5-10.1); Osmolality,Calculated 322.4 MOS/KG (273-304)
[2018-08-15] MEDS: methylPREDNISolone SOD SUC 40 MG/1 ML VIAL IV SCH ×3 (07:03→21:49)
[2018-08-15] MEDS ORDERED: VANCOMYCIN INJ 1,250 MG in SODIUM CHLORIDE 0.9% 250 ML IV SCH (08:00)
[2018-08-15] MEDS: FUROSEMIDE 40 MG/4 ML VIAL IV SCH (09:55)
[2018-08-15] MEDS: ESCITALOPRAM 10 MG TABLET PO SCH (09:56)
[2018-08-15] MEDS: CARVEDILOL 6.25 MG TABLET PO SCH (09:56)
[2018-08-15] MEDS: CYANOCOBALAMIN 1000 MCG/1 ML VIAL IM SCH (09:56)
[2018-08-15] MEDS: LOSARTAN 25 MG TABLET PO SCH ×2 (09:56→21:49)
[2018-08-15] MEDS: CHLORHEXIDINE 0.12% ORAL RINSE 60 ML BOTTLE SWISH/SPIT SCH ×2 (09:57→23:00)
[2018-08-15] MEDS: DEXTROSE 5% 1,000 ML IV SCH (11:39)
[2018-08-15] MEDS: ENOXAPARIN 40 MG/0.4 ML SYRINGE SUBCUT SCH (15:34)
[2018-08-15] MEDS: CARVEDILOL 12.5 MG TABLET PO SCH (21:49)
[2018-08-16] MEDS: INSULIN REGULAR 100 UNIT/ML SUBCUT SCH ×6 (01:22→23:27)
[2018-08-16] MEDS: ALBUTEROL/IPRATROPIUM 3 ML NEB RESP TX SCH ×6 (03:00→23:59)
[2018-08-16] MEDS: DEXTROSE 5% 1,000 ML IV SCH ×2 (04:32→18:36)
[2018-08-16 04:54] LABS: Albumin 3.3 G/DL (3.4-5.0); Bilirubin,Total 2.6 MG/DL (0.2-1.0); Calcium 9.6 MG/DL (8.5-10.1); Osmolality,Calculated 310.4 MOS/KG (273-304); Total Protein 6.1 G/DL (6.4-8.3)
[2018-08-16 06:56] LABS: Basophils # 0.1 10*3/uL (0.0-0.2); Basophils % 0.2 % (0.0-0.8); Hematocrit 34.7 VOL% (42.0-52.0); Hemoglobin 10.6 GM/DL (14.0-18.0); Immature Granulocytes % 4.6 %; Immature Granulocytes Absolute 1.16 #; Lymphocytes # 0.6 10*3/uL (1.4-4.0); Lymphocytes % 2.2 % (21.2-54.2); Mean Corpuscular HGB Conc 30.5 GM/DL (32-36); Mean Corpuscular Volume 87.6 FL (87-102); Mean Platelet Volume 12.8 FL (9.6-12.0); Monocytes % 4.6 % (1.7-12.7); NRBC # 0.73 10*3/uL; Neutrophils % 88.4 % (38.7-73.9); Platelet Count 126 T/CUMM (130-400); Red Blood Count 3.96 MC/CUMM (3.8-5.5); Red Cell Distribution Width 23.2 % (9.3-17.3); White Blood Count 25.5 T/CUMM (4-12)
[2018-08-16 07:17] LABS: Band Neutrophils 2 % (0-10); Hypochromasia 1+; Lymphocytes 4 % (20-55); Nucleated Red Blood Cells 5 (0-5); Platelet Estimate Normal; Segmented Neutrophils 87 % (50-85); Total Cells Counted 100
[2018-08-16 07:18] LABS: Microcytosis Slight
[2018-08-16] MEDS: LOSARTAN 25 MG TABLET PO SCH ×2 (08:25→21:17)
[2018-08-16] MEDS: ESCITALOPRAM 10 MG TABLET PO SCH (08:25)
[2018-08-16] MEDS: FUROSEMIDE 40 MG/4 ML VIAL IV SCH (08:26)
[2018-08-16] MEDS: CARVEDILOL 12.5 MG TABLET PO SCH ×2 (08:26→21:17)
[2018-08-16] MEDS: CHLORHEXIDINE 0.12% ORAL RINSE 60 ML BOTTLE SWISH/SPIT SCH ×2 (08:26→21:17)
[2018-08-16] MEDS: VANCOMYCIN INJ 1,500 MG in SODIUM CHLORIDE 0.9% 500 ML IV SCH (09:13)
[2018-08-16] MEDS: methylPREDNISolone SOD SUC 40 MG/1 ML VIAL IV SCH (09:13)
[2018-08-17] MEDS: ALBUTEROL/IPRATROPIUM 3 ML NEB RESP TX SCH ×6 (03:14→23:35)
[2018-08-17 04:51] LABS: Basophils % 0.2 % (0.0-0.8); Hematocrit 34.4 VOL% (42.0-52.0); Hemoglobin 10.4 GM/DL (14.0-18.0); Immature Granulocytes % 3.1 %; Immature Granulocytes Absolute 0.73 #; Lymphocytes # 0.6 10*3/uL (1.4-4.0); Lymphocytes % 2.4 % (21.2-54.2); Mean Corpuscular HGB Conc 30.2 GM/DL (32-36); Mean Corpuscular Volume 87.3 FL (87-102); Monocytes % 6.3 % (1.7-12.7); Platelet Count 122 T/CUMM (130-400); Red Blood Count 3.94 MC/CUMM (3.8-5.5); Red Cell Distribution Width 22.8 % (9.3-17.3); White Blood Count 23.3 T/CUMM (4-12)
[2018-08-17 05:04] LABS: Osmolality,Calculated 300.7 MOS/KG (273-304)
[2018-08-17 05:09] LABS: Albumin 3.4 G/DL (3.4-5.0); Bilirubin,Direct 1.06 MG/DL (0.0-0.20); Bilirubin,Indirect 1.3 MG/DL (0.0-1.0); Bilirubin,Total 2.4 MG/DL (0.2-1.0); Total Protein 6.1 G/DL (6.4-8.3)
[2018-08-17] MEDS: INSULIN REGULAR 100 UNIT/ML SUBCUT SCH ×3 (05:44→18:16)
[2018-08-17 05:54] LABS: Lymphocytes 1 % (20-55); Nucleated Red Blood Cells 4 (0-5); Segmented Neutrophils 93 % (50-85); Total Cells Counted 100
[2018-08-17 05:55] LABS: Anisocytosis 1+; Hypochromasia Slight; Microcytosis 1+
[2018-08-17 05:56] LABS: Ovalocytes Slight; Polychromasia Slight
[2018-08-17 05:57] LABS: Platelet Estimate Normal
[2018-08-17] MEDS: DEXTROSE 5% 1,000 ML IV SCH (06:23)
[2018-08-17] MEDS: CARVEDILOL 12.5 MG TABLET PO SCH ×2 (08:02→22:04)
[2018-08-17] MEDS: FUROSEMIDE 40 MG/4 ML VIAL IV SCH (08:02)
[2018-08-17] MEDS: LOSARTAN 25 MG TABLET PO SCH ×2 (08:02→22:04)
[2018-08-17] MEDS: ESCITALOPRAM 10 MG TABLET PO SCH (08:02)
[2018-08-17] MEDS: methylPREDNISolone SOD SUC 40 MG/1 ML VIAL IV SCH (08:02)
[2018-08-17] MEDS: CHLORHEXIDINE 0.12% ORAL RINSE 60 ML BOTTLE SWISH/SPIT SCH ×2 (08:03→22:03)
[2018-08-17] MEDS: VANCOMYCIN INJ 1,500 MG in SODIUM CHLORIDE 0.9% 500 ML IV SCH (08:03)
[2018-08-17] MEDS: POTASSIUM CHLORIDE RIDER 10 MEQ in PREMIX 1 EACH IV PRN (09:25)
[2018-08-17 11:10] LABS: Glucose,CSF 95 MG/DL (40-70)
[2018-08-17 11:31] LABS: Appearance,CSF Clear; Red Blood Cell,CSF < 1 C/CUMM; White Blood Cell,CSF 2 C/CUMM
[2018-08-17 11:32] LABS: Lymphocytes,CSF 100 %
[2018-08-18] MEDS: INSULIN REGULAR 100 UNIT/ML SUBCUT SCH ×4 (00:14→18:28)
[2018-08-18] MEDS: ALBUTEROL/IPRATROPIUM 3 ML NEB RESP TX SCH ×6 (03:41→22:37)
[2018-08-18 05:22] LABS: Basophils # 0.1 10*3/uL (0.0-0.2); Basophils % 0.3 % (0.0-0.8); Hematocrit 40.4 VOL% (42.0-52.0); Hemoglobin 12.2 GM/DL (14.0-18.0); Immature Granulocytes % 3.2 %; Immature Granulocytes Absolute 0.96 #; Lymphocytes # 0.7 10*3/uL (1.4-4.0); Lymphocytes % 2.2 % (21.2-54.2); Mean Corpuscular HGB Conc 30.2 GM/DL (32-36); Mean Corpuscular Volume 86.9 FL (87-102); Monocytes % 5.8 % (1.7-12.7); NRBC # 0.21 10*3/uL; Neutrophils % 88.5 % (38.7-73.9); Platelet Count 125 T/CUMM (130-400); Red Blood Count 4.65 MC/CUMM (3.8-5.5); Red Cell Distribution Width 23.2 % (9.3-17.3); White Blood Count 30.4 T/CUMM (4-12)
[2018-08-18 05:42] LABS: Calcium 9.2 MG/DL (8.5-10.1); Osmolality,Calculated 304.6 MOS/KG (273-304)
[2018-08-18 06:02] LABS: Hypochromasia 1+; Lymphocytes 2 % (20-55); Macrocytosis 1+; Nucleated Red Blood Cells 1 (0-5); Platelet Estimate Adequate; Polychromasia Few; Segmented Neutrophils 95 % (50-85); Total Cells Counted 100
[2018-08-18] MEDS: FUROSEMIDE 40 MG/4 ML VIAL IV SCH (08:58)
[2018-08-18] MEDS: VANCOMYCIN INJ 1,500 MG in SODIUM CHLORIDE 0.9% 500 ML IV SCH (09:00)
[2018-08-18] MEDS: methylPREDNISolone SOD SUC 40 MG/1 ML VIAL IV SCH (09:00)
[2018-08-18] MEDS: ESCITALOPRAM 10 MG TABLET PO SCH (09:02)
[2018-08-18] MEDS: CARVEDILOL 12.5 MG TABLET PO SCH ×2 (09:02→21:30)
[2018-08-18] MEDS: LOSARTAN 25 MG TABLET PO SCH ×2 (09:02→21:30)
[2018-08-18] MEDS: CHLORHEXIDINE 0.12% ORAL RINSE 60 ML BOTTLE SWISH/SPIT SCH ×2 (09:03→21:30)
[2018-08-18] MEDS: MORPHINE 4 MG/1 ML VIAL IV PRN ×3 (10:44→22:30)
[2018-08-19] MEDS: INSULIN REGULAR 100 UNIT/ML SUBCUT SCH ×4 (00:19→17:28)
[2018-08-19] MEDS: ALBUTEROL/IPRATROPIUM 3 ML NEB RESP TX SCH ×6 (02:32→22:17)
[2018-08-19 04:46] LABS: Basophils # 0.1 10*3/uL (0.0-0.2); Basophils % 0.3 % (0.0-0.8); Hematocrit 42.7 VOL% (42.0-52.0); Hemoglobin 12.9 GM/DL (14.0-18.0); Immature Granulocytes % 2.4 %; Immature Granulocytes Absolute 0.86 #; Lymphocytes # 0.6 10*3/uL (1.4-4.0); Lymphocytes % 1.8 % (21.2-54.2); Mean Corpuscular HGB Conc 30.2 GM/DL (32-36); Mean Corpuscular Volume 87.9 FL (87-102); Monocytes % 5.4 % (1.7-12.7); NRBC # 0.06 10*3/uL; Neutrophils % 90.1 % (38.7-73.9); Platelet Count 134 T/CUMM (130-400); Red Blood Count 4.86 MC/CUMM (3.8-5.5); Red Cell Distribution Width 23.4 % (9.3-17.3); White Blood Count 35.3 T/CUMM (4-12)
[2018-08-19 05:18] LABS: Hypochromasia 1+; Lymphocytes 2 % (20-55); Microcytosis Slight; Ovalocytes Slight; Platelet Estimate Adequate; Segmented Neutrophils 95 % (50-85); Total Cells Counted 100
[2018-08-19 05:27] LABS: Calcium 8.8 MG/DL (8.5-10.1); Osmolality,Calculated 303.4 MOS/KG (273-304)
[2018-08-19] MEDS: LOSARTAN 25 MG TABLET PO SCH ×2 (08:41→20:53)
[2018-08-19] MEDS: ESCITALOPRAM 10 MG TABLET PO SCH (08:41)
[2018-08-19] MEDS: CARVEDILOL 12.5 MG TABLET PO SCH ×2 (08:41→20:53)
[2018-08-19] MEDS: FUROSEMIDE 40 MG/4 ML VIAL IV SCH (08:42)
[2018-08-19] MEDS: CHLORHEXIDINE 0.12% ORAL RINSE 60 ML BOTTLE SWISH/SPIT SCH ×2 (09:00→20:53)
[2018-08-19] MEDS: VANCOMYCIN INJ 1,500 MG in SODIUM CHLORIDE 0.9% 500 ML IV SCH (09:45)
[2018-08-19] MEDS: MORPHINE 4 MG/1 ML VIAL IV PRN ×2 (11:03→20:54)
[2018-08-19 14:16] LABS: VDRL Spinal Fluid Negative (Negative)
[2018-08-19] MEDS: MORPHINE 10 MG/1 ML VIAL IV PRN (23:01)
[2018-08-20] MEDS: INSULIN REGULAR 100 UNIT/ML SUBCUT SCH ×4 (00:25→18:13)
[2018-08-20] MEDS: ALBUTEROL/IPRATROPIUM 3 ML NEB RESP TX SCH ×6 (03:05→23:15)
[2018-08-20 06:23] LABS: Basophils # 0.1 10*3/uL (0.0-0.2); Basophils % 0.3 % (0.0-0.8); Eosinophils # 0.1 10*3/uL (0.0-0.87); Eosinophils % 0.3 % (0.00-10.9); Hematocrit 45.3 VOL% (42.0-52.0); Hemoglobin 13.4 GM/DL (14.0-18.0); Immature Granulocytes % 2.1 %; Immature Granulocytes Absolute 0.66 #; Lymphocytes # 0.6 10*3/uL (1.4-4.0); Lymphocytes % 1.8 % (21.2-54.2); Mean Corpuscular HGB Conc 29.6 GM/DL (32-36); Mean Corpuscular Volume 88.8 FL (87-102); Monocytes % 7.7 % (1.7-12.7); NRBC # 0.02 10*3/uL; Neutrophils % 87.8 % (38.7-73.9); Platelet Count 112 T/CUMM (130-400); Red Cell Distribution Width 23.5 % (9.3-17.3); White Blood Count 31.4 T/CUMM (4-12)
[2018-08-20 06:35] LABS: Calcium 9.6 MG/DL (8.5-10.1); Lymphocytes 4 % (20-55); Segmented Neutrophils 89 % (50-85)
[2018-08-20 06:36] LABS: Platelet Estimate Normal; Polychromasia Few
[2018-08-20 06:37] LABS: Total Cells Counted 100
[2018-08-20] MEDS: FUROSEMIDE 40 MG/4 ML VIAL IV SCH (09:00)
[2018-08-20] MEDS: VANCOMYCIN INJ 1,500 MG in SODIUM CHLORIDE 0.9% 500 ML IV SCH (09:00)
[2018-08-20] MEDS: ESCITALOPRAM 10 MG TABLET PO SCH (09:00)
[2018-08-20] MEDS: LOSARTAN 25 MG TABLET PO SCH ×2 (09:00→21:36)
[2018-08-20] MEDS: CARVEDILOL 12.5 MG TABLET PO SCH ×2 (09:00→21:36)
[2018-08-20] MEDS: CHLORHEXIDINE 0.12% ORAL RINSE 60 ML BOTTLE SWISH/SPIT SCH ×2 (09:01→21:36)
[2018-08-20] MEDS: POTASSIUM CHLORIDE RIDER 10 MEQ in PREMIX 1 EACH IV PRN ×3 (09:01→11:10)
[2018-08-20] MEDS: DEXTROSE 5% 1,000 ML IV SCH ×2 (09:44→20:02)
[2018-08-20] MEDS: GABAPENTIN 50 MG/ML 30 ML/BOTTLE PO SCH ×2 (09:44→21:36)
[2018-08-20] MEDS: MORPHINE 10 MG/1 ML VIAL IV PRN (20:36)
[2018-08-21] MEDS: INSULIN REGULAR 100 UNIT/ML SUBCUT SCH ×5 (00:03→23:10)
[2018-08-21] MEDS: ALBUTEROL/IPRATROPIUM 3 ML NEB RESP TX SCH ×5 (03:30→19:27)
[2018-08-21] MEDS: DEXTROSE 5% 1,000 ML IV SCH ×5 (04:35→22:41)
[2018-08-21 04:52] LABS: Calcium 8.9 MG/DL (8.5-10.1)
[2018-08-21 04:56] LABS: Prealbumin 11.1 MG/DL (20-40)
[2018-08-21 05:48] LABS: Basophils # 0.1 10*3/uL (0.0-0.2); Basophils % 0.2 % (0.0-0.8); Eosinophils # 0.2 10*3/uL (0.0-0.87); Eosinophils % 0.8 % (0.00-10.9); Hematocrit 40.6 VOL% (42.0-52.0); Immature Granulocytes % 1.6 %; Immature Granulocytes Absolute 0.44 #; Lymphocytes # 0.5 10*3/uL (1.4-4.0); Lymphocytes % 1.9 % (21.2-54.2); Mean Corpuscular HGB Conc 29.6 GM/DL (32-36); NRBC # 0.02 10*3/uL; Neutrophils % 88.5 % (38.7-73.9); Platelet Count 119 T/CUMM (130-400); Red Blood Count 4.51 MC/CUMM (3.8-5.5); Red Cell Distribution Width 23.2 % (9.3-17.3); White Blood Count 27.5 T/CUMM (4-12)
[2018-08-21 06:08] LABS: Eosinophils 1 % (0-10); Hypochromasia Slight; Lymphocytes 1 % (20-55); Nucleated Red Blood Cells 1 (0-5); Platelet Estimate Decreased; Segmented Neutrophils 92 % (50-85); Total Cells Counted 100
[2018-08-21 06:09] LABS: Microcytosis Slight; Ovalocytes Slight
[2018-08-21] MEDS ORDERED: ACETAMINOPHEN 325 MG TABLET PO PRN (07:14)
[2018-08-21] MEDS: VANCOMYCIN INJ 1,500 MG in SODIUM CHLORIDE 0.9% 500 ML IV SCH (07:55)
[2018-08-21] MEDS: CARVEDILOL 12.5 MG TABLET PO SCH ×2 (07:59→20:21)
[2018-08-21] MEDS: LOSARTAN 25 MG TABLET PO SCH ×2 (08:00→20:21)
[2018-08-21] MEDS: FUROSEMIDE 40 MG/4 ML VIAL IV SCH (08:00)
[2018-08-21] MEDS: ESCITALOPRAM 10 MG TABLET PO SCH (08:00)
[2018-08-21] MEDS: CHLORHEXIDINE 0.12% ORAL RINSE 60 ML BOTTLE SWISH/SPIT SCH ×2 (08:01→20:20)
[2018-08-21] MEDS: GABAPENTIN 50 MG/ML 30 ML/BOTTLE PO SCH (08:45)
[2018-08-21] MEDS ORDERED: SODIUM CHLORIDE 0.9% 500 ML IV ONE (09:32)
[2018-08-21] MEDS: HYDROCORTISONE 100 MG VIAL IV SCH ×2 (09:38→18:08)
[2018-08-21] MEDS: MEROPENEM 1,000 MG in SODIUM CHLORIDE 0.9% 100 ML IV SCH ×2 (09:38→20:35)
[2018-08-21] MEDS ORDERED: NOREPINEPHRINE 8 MG in SODIUM CHLORIDE 0.9% 242 ML IV PRN (09:55)
[2018-08-21 10:42] LABS: Basophils # 0.1 10*3/uL (0.0-0.2); Basophils % 0.2 % (0.0-0.8); Eosinophils # 0.2 10*3/uL (0.0-0.87); Eosinophils % 0.6 % (0.00-10.9); Hematocrit 34.4 VOL% (42.0-52.0); Hemoglobin 10.2 GM/DL (14.0-18.0); Immature Granulocytes % 1.3 %; Immature Granulocytes Absolute 0.34 #; Lymphocytes # 0.4 10*3/uL (1.4-4.0); Lymphocytes % 1.6 % (21.2-54.2); Mean Corpuscular HGB Conc 29.7 GM/DL (32-36); Mean Corpuscular Volume 89.6 FL (87-102); Monocytes % 6.8 % (1.7-12.7); Neutrophils % 89.5 % (38.7-73.9); Platelet Count 109 T/CUMM (130-400); Red Blood Count 3.84 MC/CUMM (3.8-5.5); White Blood Count 25.7 T/CUMM (4-12)
[2018-08-21 11:12] LABS: Eosinophils 2 % (0-10); Hypochromasia 1+; Lymphocytes 1 % (20-55); Platelet Estimate Decreased; Segmented Neutrophils 85 % (50-85); Total Cells Counted 100
[2018-08-21] MEDS: ALBUMIN 5% 12.5 GM in PREMIX 1 EACH IV PRN (11:12)
[2018-08-21 11:13] LABS: Microcytosis Slight; Ovalocytes Slight
[2018-08-21] MEDS: METOCLOPRAMIDE 10 MG/2 ML VIAL IV SCH ×3 (12:00→23:10)
[2018-08-21 16:41] LABS: West Nile Virus Ab, IgG, CSF Negative (Negative); West Nile Virus Ab, IgM, CSF Negative (Negative)
[2018-08-22] MEDS: ALBUTEROL/IPRATROPIUM 3 ML NEB RESP TX SCH ×7 (00:54→23:34)
[2018-08-22] MEDS: HYDROCORTISONE 100 MG VIAL IV SCH ×3 (02:20→16:36)
[2018-08-22] MEDS: DEXTROSE 5% 1,000 ML IV SCH (04:49)
[2018-08-22] MEDS: METOCLOPRAMIDE 10 MG/2 ML VIAL IV SCH ×3 (05:40→18:40)
[2018-08-22] MEDS: INSULIN REGULAR 100 UNIT/ML SUBCUT SCH ×3 (05:40→18:28)
[2018-08-22 05:43] LABS: Basophils % 0.2 % (0.0-0.8); Eosinophils % 0.1 % (0.00-10.9); Hematocrit 34.2 VOL% (42.0-52.0); Hemoglobin 10.2 GM/DL (14.0-18.0); Immature Granulocytes % 0.9 %; Immature Granulocytes Absolute 0.17 #; Lymphocytes # 0.4 10*3/uL (1.4-4.0); Mean Corpuscular HGB Conc 29.8 GM/DL (32-36); Mean Corpuscular Volume 87.9 FL (87-102); Monocytes % 5.6 % (1.7-12.7); Neutrophils % 91.2 % (38.7-73.9); Red Blood Count 3.89 MC/CUMM (3.8-5.5); Red Cell Distribution Width 22.7 % (9.3-17.3); White Blood Count 18.5 T/CUMM (4-12)
[2018-08-22 05:45] LABS: Platelet Count 94 T/CUMM (130-400)
[2018-08-22 06:09] LABS: Band Neutrophils 3 % (0-10); Hypochromasia 1+; Lymphocytes 5 % (20-55); Ovalocytes Slight; Platelet Estimate Decreased; Segmented Neutrophils 89 % (50-85); Total Cells Counted 100
[2018-08-22 06:10] LABS: Microcytosis Slight
[2018-08-22 06:13] LABS: Calcium 8.4 MG/DL (8.5-10.1); Osmolality,Calculated 286.5 MOS/KG (273-304)
[2018-08-22] MEDS: MORPHINE 4 MG/1 ML VIAL IV PRN ×2 (06:14→22:37)
[2018-08-22] MEDS: ESCITALOPRAM 10 MG TABLET PO SCH (08:05)
[2018-08-22] MEDS: MEROPENEM 1,000 MG in SODIUM CHLORIDE 0.9% 100 ML IV SCH ×2 (08:05→16:36)
[2018-08-22] MEDS: POTASSIUM CHLORIDE RIDER 20 MEQ in PREMIX 1 EACH IV PRN (08:20)
[2018-08-22] MEDS: LOSARTAN 25 MG TABLET PO SCH ×2 (08:22→23:44)
[2018-08-22] MEDS: CHLORHEXIDINE 0.12% ORAL RINSE 60 ML BOTTLE SWISH/SPIT SCH ×2 (08:22→23:44)
[2018-08-22] MEDS: CARVEDILOL 12.5 MG TABLET PO SCH ×2 (08:22→23:43)
[2018-08-22] MEDS ORDERED: ENOXAPARIN 40 MG/0.4 ML SYRINGE SUBCUT SCH (09:30)
[2018-08-22] MEDS ORDERED: ASPIRIN EC 81 MG TABLET PO SCH (09:57)
[2018-08-23] MEDS: PANTOPRAZOLE 40 MG VIAL IV SCH ×3 (00:50→22:39)
[2018-08-23] MEDS: METOCLOPRAMIDE 10 MG/2 ML VIAL IV SCH ×2 (00:55→05:38)
[2018-08-23 00:57] LABS: Hematocrit 26.4 VOL% (42.0-52.0); Hemoglobin 8.1 GM/DL (14.0-18.0)
[2018-08-23] MEDS: DEXTROSE 5% 1,000 ML IV SCH ×5 (00:58→18:43)
[2018-08-23] MEDS: MEROPENEM 1,000 MG in SODIUM CHLORIDE 0.9% 100 ML IV SCH (00:59)
[2018-08-23] MEDS: INSULIN REGULAR 100 UNIT/ML SUBCUT SCH ×4 (01:10→18:20)
[2018-08-23] MEDS ORDERED: SODIUM CHLORIDE 0.9% 1,000 ML IV PRN ×2 (01:23→12:18)
[2018-08-23] MEDS ORDERED: ALBUMIN 5% 12.5 GM in PREMIX 1 EACH IV ONE (02:21)
[2018-08-23] MEDS: HYDROCORTISONE 100 MG VIAL IV SCH (03:27)
[2018-08-23] MEDS: ALBUTEROL/IPRATROPIUM 3 ML NEB RESP TX SCH ×6 (03:35→23:03)
[2018-08-23 05:38] LABS: Basophils % 0.1 % (0.0-0.8); Eosinophils # 0.1 10*3/uL (0.0-0.87); Eosinophils % 0.7 % (0.00-10.9); Hematocrit 18.6 VOL% (42.0-52.0); Immature Granulocytes % 1.8 %; Immature Granulocytes Absolute 0.26 #; Lymphocytes # 0.8 10*3/uL (1.4-4.0); Lymphocytes % 5.2 % (21.2-54.2); Mean Corpuscular HGB Conc 30.6 GM/DL (32-36); Mean Corpuscular Volume 86.5 FL (87-102); Mean Platelet Volume 12.7 FL (9.6-12.0); Monocytes % 10.2 % (1.7-12.7); Red Blood Count 2.15 MC/CUMM (3.8-5.5); Red Cell Distribution Width 22.5 % (9.3-17.3); White Blood Count 14.3 T/CUMM (4-12)
[2018-08-23 05:55] LABS: Hemoglobin 5.7 GM/DL (14.0-18.0)
[2018-08-23 05:56] LABS: Platelet Count 181 T/CUMM (130-400)
[2018-08-23 06:00] LABS: Calcium 7.9 MG/DL (8.5-10.1); Osmolality,Calculated 301.5 MOS/KG (273-304)
[2018-08-23 06:02] LABS: Platelet Estimate Normal
[2018-08-23 06:03] LABS: Ovalocytes 1+
[2018-08-23 06:04] LABS: Hypochromasia 2+
[2018-08-23] MEDS: CARVEDILOL 12.5 MG TABLET PO SCH ×2 (09:00→22:39)
[2018-08-23] MEDS: ESCITALOPRAM 10 MG TABLET PO SCH (09:00)
[2018-08-23] MEDS: CHLORHEXIDINE 0.12% ORAL RINSE 60 ML BOTTLE SWISH/SPIT SCH ×2 (09:15→22:39)
[2018-08-23 12:14] LABS: Hematocrit 25.8 VOL% (42.0-52.0); Hemoglobin 8.2 GM/DL (14.0-18.0)
[2018-08-23] MEDS ORDERED: FUROSEMIDE 40 MG/4 ML VIAL IV ONE (18:32)
[2018-08-23 22:48] LABS: Hematocrit 33.7 VOL% (42.0-52.0)
[2018-08-23 22:54] LABS: Hemoglobin 10.9 GM/DL (14.0-18.0)
[2018-08-24] MEDS: INSULIN REGULAR 100 UNIT/ML SUBCUT SCH ×4 (00:31→18:20)
[2018-08-24] MEDS: ALBUTEROL/IPRATROPIUM 3 ML NEB RESP TX SCH ×6 (02:47→22:23)
[2018-08-24 04:03] LABS: Basophils % 0.1 % (0.0-0.8); Eosinophils # 0.2 10*3/uL (0.0-0.87); Eosinophils % 1.3 % (0.00-10.9); Hematocrit 35.4 VOL% (42.0-52.0); Hemoglobin 11.4 GM/DL (14.0-18.0); Immature Granulocytes % 2.4 %; Immature Granulocytes Absolute 0.36 #; Lymphocytes # 0.8 10*3/uL (1.4-4.0); Lymphocytes % 5.1 % (21.2-54.2); Mean Corpuscular HGB Conc 32.2 GM/DL (32-36); Mean Corpuscular Volume 84.5 FL (87-102); Mean Platelet Volume 12.5 FL (9.6-12.0); Neutrophils % 82.1 % (38.7-73.9); Platelet Count 156 T/CUMM (130-400); Red Blood Count 4.19 MC/CUMM (3.8-5.5); Red Cell Distribution Width 19.2 % (9.3-17.3); White Blood Count 15.1 T/CUMM (4-12)
[2018-08-24 04:19] LABS: Calcium 8.5 MG/DL (8.5-10.1); Osmolality,Calculated 291.1 MOS/KG (273-304)
[2018-08-24] MEDS: FUROSEMIDE 40 MG TABLET PO SCH ×2 (09:50→16:00)
[2018-08-24] MEDS: CHLORHEXIDINE 0.12% ORAL RINSE 60 ML BOTTLE SWISH/SPIT SCH ×2 (09:50→21:11)
[2018-08-24] MEDS: PANTOPRAZOLE 40 MG VIAL IV SCH ×2 (09:50→21:15)
[2018-08-24] MEDS: CARVEDILOL 12.5 MG TABLET PO SCH ×2 (09:50→21:03)
[2018-08-24] MEDS: LOSARTAN 50 MG TABLET PO SCH ×2 (09:50→21:03)
[2018-08-24] MEDS: ESCITALOPRAM 10 MG TABLET PO SCH (09:50)
[2018-08-24] MEDS: DEXTROSE 5% 1,000 ML IV SCH (10:50)
[2018-08-24] MEDS: MORPHINE 4 MG/1 ML VIAL IV PRN (21:11)
[2018-08-25] MEDS: INSULIN REGULAR 100 UNIT/ML SUBCUT SCH ×4 (00:32→19:02)
[2018-08-25] MEDS: DEXTROSE 5% 1,000 ML IV SCH ×5 (02:25→23:29)
[2018-08-25] MEDS: ALBUTEROL/IPRATROPIUM 3 ML NEB RESP TX SCH ×6 (02:26→23:42)
[2018-08-25 05:29] LABS: Basophils % 0.2 % (0.0-0.8); Eosinophils # 0.1 10*3/uL (0.0-0.87); Eosinophils % 0.7 % (0.00-10.9); Hematocrit 34.8 VOL% (42.0-52.0); Hemoglobin 11.3 GM/DL (14.0-18.0); Immature Granulocytes % 2.2 %; Immature Granulocytes Absolute 0.41 #; Lymphocytes # 0.9 10*3/uL (1.4-4.0); Lymphocytes % 4.7 % (21.2-54.2); Mean Corpuscular HGB Conc 32.5 GM/DL (32-36); Mean Corpuscular Volume 85.9 FL (87-102); Neutrophils % 84.2 % (38.7-73.9); Platelet Count 132 T/CUMM (130-400); Red Blood Count 4.05 MC/CUMM (3.8-5.5); Red Cell Distribution Width 18.8 % (9.3-17.3); White Blood Count 18.5 T/CUMM (4-12)
[2018-08-25 05:49] LABS: Calcium 8.5 MG/DL (8.5-10.1); Osmolality,Calculated 277.7 MOS/KG (273-304)
[2018-08-25 06:41] LABS: Anisocytosis 1+; Lymphocytes 3 % (20-55); Microcytosis 1+; Segmented Neutrophils 92 % (50-85); Total Cells Counted 100
[2018-08-25 06:42] LABS: Platelet Estimate Normal
[2018-08-25] MEDS: FUROSEMIDE 40 MG TABLET PO SCH ×2 (08:30→17:20)
[2018-08-25] MEDS: ESCITALOPRAM 10 MG TABLET PO SCH (10:56)
[2018-08-25] MEDS: CARVEDILOL 12.5 MG TABLET PO SCH ×2 (10:56→20:57)
[2018-08-25] MEDS: PANTOPRAZOLE 40 MG VIAL IV SCH ×2 (10:56→20:57)
[2018-08-25] MEDS: LOSARTAN 50 MG TABLET PO SCH ×2 (10:56→20:57)
[2018-08-25] MEDS: CHLORHEXIDINE 0.12% ORAL RINSE 60 ML BOTTLE SWISH/SPIT SCH ×2 (10:57→20:37)
[2018-08-26] MEDS: INSULIN REGULAR 100 UNIT/ML SUBCUT SCH ×4 (00:30→18:36)
[2018-08-26] MEDS: ALBUTEROL/IPRATROPIUM 3 ML NEB RESP TX SCH ×5 (02:30→19:21)
[2018-08-26 05:29] LABS: Basophils # 0.1 10*3/uL (0.0-0.2); Basophils % 0.3 % (0.0-0.8); Eosinophils # 0.1 10*3/uL (0.0-0.87); Eosinophils % 0.7 % (0.00-10.9); Hemoglobin 12.9 GM/DL (14.0-18.0); Immature Granulocytes % 1.7 %; Immature Granulocytes Absolute 0.35 #; Lymphocytes # 1.1 10*3/uL (1.4-4.0); Lymphocytes % 5.5 % (21.2-54.2); Mean Corpuscular HGB Conc 32.3 GM/DL (32-36); Mean Corpuscular Volume 85.5 FL (87-102); Monocytes % 7.1 % (1.7-12.7); Neutrophils % 84.7 % (38.7-73.9); Platelet Count 109 T/CUMM (130-400); Red Blood Count 4.68 MC/CUMM (3.8-5.5); Red Cell Distribution Width 18.9 % (9.3-17.3); White Blood Count 20.2 T/CUMM (4-12)
[2018-08-26 06:39] LABS: Calcium 8.2 MG/DL (8.5-10.1); Osmolality,Calculated 275.8 MOS/KG (273-304)
[2018-08-26 06:49] LABS: Lymphocytes 4 % (20-55); Segmented Neutrophils 93 % (50-85); Total Cells Counted 100
[2018-08-26 06:50] LABS: Anisocytosis Slight
[2018-08-26 06:51] LABS: Microcytosis Slight; Platelet Estimate Adequate; Polychromasia Slight
[2018-08-26] MEDS: CARVEDILOL 12.5 MG TABLET PO SCH ×2 (08:09→20:48)
[2018-08-26] MEDS: LOSARTAN 50 MG TABLET PO SCH ×2 (08:09→20:48)
[2018-08-26] MEDS: ESCITALOPRAM 10 MG TABLET PO SCH (08:09)
[2018-08-26] MEDS: PANTOPRAZOLE 40 MG VIAL IV SCH ×2 (08:09→20:48)
[2018-08-26] MEDS: CHLORHEXIDINE 0.12% ORAL RINSE 60 ML BOTTLE SWISH/SPIT SCH ×2 (08:09→20:53)
[2018-08-26] MEDS ORDERED: POTASSIUM CHLORIDE RIDER 10 MEQ in PREMIX 2 EACH IV ONE (10:33)
[2018-08-26] MEDS: DEXTROSE 5% 1,000 ML IV SCH ×2 (12:58→20:20)
[2018-08-27] MEDS: ALBUTEROL/IPRATROPIUM 3 ML NEB RESP TX SCH ×6 (00:05→19:40)
[2018-08-27] MEDS: INSULIN REGULAR 100 UNIT/ML SUBCUT SCH ×4 (00:33→17:35)
[2018-08-27] MEDS: DEXTROSE 5% 1,000 ML IV SCH ×3 (01:20→21:36)
[2018-08-27 05:57] LABS: Basophils % 0.1 % (0.0-0.8); Eosinophils # 0.2 10*3/uL (0.0-0.87); Eosinophils % 1.1 % (0.00-10.9); Hematocrit 34.3 VOL% (42.0-52.0); Hemoglobin 11.1 GM/DL (14.0-18.0); Immature Granulocytes Absolute 0.17 #; Lymphocytes # 1.1 10*3/uL (1.4-4.0); Lymphocytes % 6.3 % (21.2-54.2); Mean Corpuscular HGB Conc 32.4 GM/DL (32-36); Mean Corpuscular Volume 84.9 FL (87-102); Mean Platelet Volume 12.7 FL (9.6-12.0); Monocytes % 5.6 % (1.7-12.7); Neutrophils % 85.9 % (38.7-73.9); Platelet Count 137 T/CUMM (130-400); Red Blood Count 4.04 MC/CUMM (3.8-5.5); Red Cell Distribution Width 18.6 % (9.3-17.3); White Blood Count 16.8 T/CUMM (4-12)
[2018-08-27 06:16] LABS: Calcium 8.2 MG/DL (8.5-10.1)
[2018-08-27] MEDS: CHLORHEXIDINE 0.12% ORAL RINSE 60 ML BOTTLE SWISH/SPIT SCH ×2 (08:31→21:36)
[2018-08-27] MEDS: CARVEDILOL 12.5 MG TABLET PO SCH (08:31)
[2018-08-27] MEDS: LOSARTAN 50 MG TABLET PO SCH ×2 (08:31→09:05)
[2018-08-27] MEDS: PANTOPRAZOLE 40 MG VIAL IV SCH ×2 (08:31→21:34)
[2018-08-27] MEDS: ESCITALOPRAM 10 MG TABLET PO SCH (08:31)
[2018-08-27] MEDS: POTASSIUM CHLORIDE RIDER 20 MEQ in PREMIX 1 EACH IV PRN ×4 (08:32→16:46)
[2018-08-27] MEDS ORDERED: LOSARTAN 25 MG TABLET PO SCH (09:00)
[2018-08-27] MEDS ORDERED: FUROSEMIDE 20 MG TABLET PO SCH (09:00)
[2018-08-27] MEDS ORDERED: ALBUMIN 5% 25 GM in PREMIX 1 EACH IV ONE (10:00)
[2018-08-27] MEDS ORDERED: ALBUMIN 5% 12.5 GM/250 ML VIAL IV ONE ×2 (10:08)
[2018-08-27] MEDS ORDERED: ALBUMIN 5% 12.5 GM in PREMIX 1 EACH IV ONE (12:43)
[2018-08-27] MEDS ORDERED: PHENYLEPHRINE DRIP 40 MG/250 ML PREMIX IV PRN (12:45)
[2018-08-27 14:11] LABS: Basophils % 0.1 % (0.0-0.8); Eosinophils # 0.2 10*3/uL (0.0-0.87); Hematocrit 33.6 VOL% (42.0-52.0); Hemoglobin 10.8 GM/DL (14.0-18.0); Immature Granulocytes Absolute 0.14 #; Lymphocytes # 0.8 10*3/uL (1.4-4.0); Lymphocytes % 5.5 % (21.2-54.2); Mean Corpuscular HGB Conc 32.1 GM/DL (32-36); Mean Corpuscular Volume 85.5 FL (87-102); Monocytes % 4.6 % (1.7-12.7); Neutrophils % 87.8 % (38.7-73.9); Platelet Count 116 T/CUMM (130-400); Red Blood Count 3.93 MC/CUMM (3.8-5.5); Red Cell Distribution Width 18.6 % (9.3-17.3); White Blood Count 14.4 T/CUMM (4-12)
[2018-08-28] MEDS: ALBUTEROL/IPRATROPIUM 3 ML NEB RESP TX SCH ×7 (00:10→23:12)
[2018-08-28] MEDS: POTASSIUM CHLORIDE RIDER 20 MEQ in PREMIX 1 EACH IV PRN ×2 (00:22→01:25)
[2018-08-28] MEDS: INSULIN REGULAR 100 UNIT/ML SUBCUT SCH ×2 (00:22→06:12)
[2018-08-28 05:09] LABS: Basophils % 0.1 % (0.0-0.8); Eosinophils # 0.1 10*3/uL (0.0-0.87); Eosinophils % 0.9 % (0.00-10.9); Hematocrit 31.5 VOL% (42.0-52.0); Hemoglobin 9.9 GM/DL (14.0-18.0); Immature Granulocytes % 0.9 %; Immature Granulocytes Absolute 0.13 #; Lymphocytes # 0.7 10*3/uL (1.4-4.0); Lymphocytes % 5.2 % (21.2-54.2); Mean Corpuscular HGB Conc 31.4 GM/DL (32-36); Mean Corpuscular Volume 86.1 FL (87-102); Mean Platelet Volume 12.8 FL (9.6-12.0); Monocytes % 5.3 % (1.7-12.7); Neutrophils % 87.6 % (38.7-73.9); Platelet Count 106 T/CUMM (130-400); Red Blood Count 3.66 MC/CUMM (3.8-5.5); Red Cell Distribution Width 18.6 % (9.3-17.3); White Blood Count 14.1 T/CUMM (4-12)
[2018-08-28 05:12] LABS: Calcium 8.2 MG/DL (8.5-10.1); Osmolality,Calculated 271.1 MOS/KG (273-304)
[2018-08-28] MEDS: DEXTROSE 5% 1,000 ML IV SCH ×2 (06:29→11:20)
[2018-08-28] MEDS ORDERED: POTASSIUM CHLORIDE 20 MEQ TABLET PO PRN (11:02)
[2018-08-28] MEDS ORDERED: ONDANSETRON 4 MG/2 ML VIAL IV PRN (11:02)
[2018-08-28] MEDS ORDERED: MANG PO SCH (11:02)
[2018-08-28] MEDS ORDERED: MAGNESIUM HYDROXIDE SUSP 30 ML UDCUP PO PRN (11:02)
[2018-08-28] MEDS ORDERED: VIT D PO SCH (11:02)
[2018-08-28] MEDS ORDERED: [UNRECOGNIZED DRUG - OTHER] PO SCH (11:02)
[2018-08-28] MEDS ORDERED: SODIUM CHLOR 0.45% KCL 20 MEQ 20 MEQ/1,000 ML BAG IV SCH (11:02)
[2018-08-28] MEDS ORDERED: MAGNESIUM SULF RIDER 2 GM in PREMIX 1 EACH IV PRN (11:02)
[2018-08-28] MEDS ORDERED: DEXTROSE 50% 25 GM/50 ML SYRINGE IV PRN (11:02)
[2018-08-28] MEDS ORDERED: MAGNESIUM SULF RIDER 4 GM in PREMIX 1 EACH IV PRN (11:02)
[2018-08-28] MEDS ORDERED: ACETAMINOPHEN 325 MG TABLET PO PRN (11:02)
[2018-08-28] MEDS ORDERED: GLUCAGON 1 MG VIAL IM PRN (11:02)
[2018-08-28] MEDS: CHLORHEXIDINE 0.12% ORAL RINSE 60 ML BOTTLE SWISH/SPIT SCH (11:17)
[2018-08-28] MEDS: PANTOPRAZOLE 40 MG VIAL IV SCH (11:17)
[2018-08-28] MEDS: DOCUSATE SODIUM 100 MG CAPSULE PO SCH (11:25)
[2018-08-28] MEDS: CYANOCOBALAMIN 500 MCG TABLET PO SCH (11:25)
[2018-08-28] MEDS: CARVEDILOL 3.125 MG TABLET PO SCH ×2 (11:25→20:58)
[2018-08-28] MEDS: FERROUS SULFATE 325 MG TABLET PO SCH (11:25)
[2018-08-28] MEDS: ESCITALOPRAM 10 MG TABLET PO SCH (11:25)
[2018-08-28] MEDS: TESTOSTERONE TOP SCH (11:27)
[2018-08-28] MEDS: MULTIVITAMIN (CENTRUM) TABLET PO SCH (11:31)
[2018-08-28] MEDS: OMEGA 3 ACID ETHYL ESTERS 1 GM CAPSULE PO SCH (11:31)
[2018-08-28] MEDS: COENZYME Q10 100 MG CAPSULE PO SCH (12:08)
[2018-08-28] MEDS: KETOROLAC 15 MG/1 ML VIAL IV PRN (16:14)
[2018-08-29] MEDS: ALBUTEROL/IPRATROPIUM 3 ML NEB RESP TX SCH ×6 (03:09→23:59)
[2018-08-29] MEDS: KETOROLAC 15 MG/1 ML VIAL IV PRN ×3 (04:12→19:54)
[2018-08-29 05:09] LABS: Alanine Aminotransferase 59 U/L (16-61); Albumin 2.2 G/DL (3.4-5.0); Alkaline Phosphatase 92 U/L (45-117); Aspartate Amino Transferase 22 U/L (0-37); Bilirubin,Indirect 0.6 MG/DL (0.0-1.0); Blood Urea Nitrogen 24 MG/DL (7-18); Calcium 8.3 MG/DL (8.5-10.1); Glucose 137 MG/DL (74-106); Osmolality,Calculated 278.8 MOS/KG (273-304); Total Protein 5.1 G/DL (6.4-8.3)
[2018-08-29 05:14] LABS: Troponin I 0.151 NG/ML (0.00-0.045)
[2018-08-29] MEDS ORDERED: FUROSEMIDE 40 MG/4 ML VIAL IV ONE ×2 (06:00→18:45)
[2018-08-29] MEDS: MULTIVITAMIN (CENTRUM) TABLET PO SCH (08:44)
[2018-08-29] MEDS: ESCITALOPRAM 10 MG TABLET PO SCH (08:44)
[2018-08-29] MEDS: DOCUSATE SODIUM 100 MG CAPSULE PO SCH (08:44)
[2018-08-29] MEDS: OMEGA 3 ACID ETHYL ESTERS 1 GM CAPSULE PO SCH (08:44)
[2018-08-29] MEDS: CYANOCOBALAMIN 500 MCG TABLET PO SCH (08:44)
[2018-08-29] MEDS: CARVEDILOL 3.125 MG TABLET PO SCH ×2 (08:45→20:39)
[2018-08-29] MEDS: FERROUS SULFATE 325 MG TABLET PO SCH (08:45)
[2018-08-29] MEDS: COENZYME Q10 100 MG CAPSULE PO SCH (08:45)
[2018-08-29] MEDS: DEXTROSE 5% NACL 0.45% 1,000 ML IV SCH (19:00)
[2018-08-30] MEDS: ALBUTEROL/IPRATROPIUM 3 ML NEB RESP TX SCH ×6 (03:57→23:10)
[2018-08-30 05:37] LABS: Alanine Aminotransferase 53 U/L (16-61); Albumin 2.1 G/DL (3.4-5.0); Alkaline Phosphatase 111 U/L (45-117); Aspartate Amino Transferase 23 U/L (0-37); Bilirubin,Indirect 0.9 MG/DL (0.0-1.0); Blood Urea Nitrogen 28 MG/DL (7-18); Calcium 8.7 MG/DL (8.5-10.1); Glucose 133 MG/DL (74-106); Total Protein 5.6 G/DL (6.4-8.3)
[2018-08-30 05:38] LABS: Troponin I 0.186 NG/ML (0.00-0.045)
[2018-08-30] MEDS: COENZYME Q10 100 MG CAPSULE PO SCH (09:29)
[2018-08-30] MEDS: DOCUSATE SODIUM 100 MG CAPSULE PO SCH (09:29)
[2018-08-30] MEDS: OMEGA 3 ACID ETHYL ESTERS 1 GM CAPSULE PO SCH (09:29)
[2018-08-30] MEDS: CYANOCOBALAMIN 500 MCG TABLET PO SCH (09:29)
[2018-08-30] MEDS: MULTIVITAMIN (CENTRUM) TABLET PO SCH (09:29)
[2018-08-30] MEDS: FERROUS SULFATE 325 MG TABLET PO SCH (09:29)
[2018-08-30] MEDS: ESCITALOPRAM 10 MG TABLET PO SCH (09:29)
[2018-08-30] MEDS: DEXTROSE 5% NACL 0.45% 1,000 ML IV SCH ×2 (09:30→17:59)
[2018-08-30] MEDS: CARVEDILOL 3.125 MG TABLET PO SCH ×2 (09:30→23:50)
[2018-08-31] MEDS: DEXTROSE 5% NACL 0.45% 1,000 ML IV SCH ×3 (02:04→23:05)
[2018-08-31] MEDS: ALBUTEROL/IPRATROPIUM 3 ML NEB RESP TX SCH ×6 (02:20→23:05)
[2018-08-31 04:49] LABS: Basophils % 0.2 % (0.0-0.8); Eosinophils # 0.2 10*3/uL (0.0-0.87); Eosinophils % 2.1 % (0.00-10.9); Hemoglobin 8.3 GM/DL (14.0-18.0); Immature Granulocytes % 1.3 %; Immature Granulocytes Absolute 0.13 #; Lymphocytes # 0.7 10*3/uL (1.4-4.0); Mean Corpuscular HGB Conc 31.9 GM/DL (32-36); Mean Corpuscular Volume 86.1 FL (87-102); Mean Platelet Volume 13.1 FL (9.6-12.0); Monocytes % 6.8 % (1.7-12.7); Neutrophils % 82.6 % (38.7-73.9); Platelet Count 147 T/CUMM (130-400); Red Blood Count 3.02 MC/CUMM (3.8-5.5); Red Cell Distribution Width 18.7 % (9.3-17.3)
[2018-08-31 05:16] LABS: Calcium 8.7 MG/DL (8.5-10.1); Osmolality,Calculated 278.8 MOS/KG (273-304)
[2018-08-31 05:22] LABS: Albumin 2.1 G/DL (3.4-5.0); Bilirubin,Total 0.9 MG/DL (0.2-1.0); Calcium 8.7 MG/DL (8.5-10.1); Osmolality,Calculated 279.8 MOS/KG (273-304); Total Protein 5.6 G/DL (6.4-8.3)
[2018-08-31] MEDS ORDERED: methylPREDNISolone SOD SUC 40 MG/1 ML VIAL IV SCH (06:30)
[2018-08-31] MEDS ORDERED: MEPERIDINE 25 MG/1 ML VIAL ONE (07:24)
[2018-08-31] MEDS ORDERED: MIDAZOLAM 10 MG/2 ML VIAL ONE (07:25)
[2018-08-31] MEDS ORDERED: MIDAZOLAM 2 MG/2 ML VIAL IV ONE (08:12)
[2018-08-31] MEDS ORDERED: SODIUM CHLORIDE 0.9% 1,000 ML IV SCH (08:30)
[2018-08-31] MEDS: KETOROLAC 15 MG/1 ML VIAL IV PRN (09:52)
[2018-08-31] MEDS: methylPREDNISolone SOD SUC 40 MG/1 ML VIAL IV SCH ×2 (09:53→23:06)
[2018-08-31] MEDS ORDERED: CYANOCOBALAMIN 500 MCG TABLET PO ONE (10:00)
[2018-08-31] MEDS: MULTIVITAMIN (CENTRUM) TABLET PO SCH (15:45)
[2018-08-31] MEDS: DOCUSATE SODIUM 100 MG CAPSULE PO SCH (15:45)
[2018-08-31] MEDS: COENZYME Q10 100 MG CAPSULE PO SCH (15:45)
[2018-08-31] MEDS: ESCITALOPRAM 10 MG TABLET PO SCH (15:46)
[2018-08-31] MEDS: OMEGA 3 ACID ETHYL ESTERS 1 GM CAPSULE PO SCH (15:46)
[2018-08-31] MEDS: FUROSEMIDE 40 MG TABLET PO SCH (15:46)
[2018-08-31] MEDS: FERROUS SULFATE 325 MG TABLET PO SCH (15:46)
[2018-08-31] MEDS: PANTOPRAZOLE 40 MG TABLET PO SCH ×2 (15:46→23:05)
[2018-08-31] MEDS: CARVEDILOL 3.125 MG TABLET PO SCH ×2 (15:46→23:04)
[2018-08-31] MEDS: TESTOSTERONE TOP SCH (15:47)
[2018-08-31] MEDS: CYANOCOBALAMIN 500 MCG TABLET PO SCH (15:47)
[2018-09-01] MEDS: ALBUTEROL/IPRATROPIUM 3 ML NEB RESP TX SCH ×6 (03:06→23:22)
[2018-09-01 04:54] LABS: Basophils % 0.1 % (0.0-0.8); Hematocrit 26.9 VOL% (42.0-52.0); Hemoglobin 8.4 GM/DL (14.0-18.0); Immature Granulocytes Absolute 0.09 #; Lymphocytes # 0.5 10*3/uL (1.4-4.0); Lymphocytes % 5.2 % (21.2-54.2); Mean Corpuscular HGB Conc 31.2 GM/DL (32-36); Mean Corpuscular Volume 86.5 FL (87-102); Mean Platelet Volume 12.9 FL (9.6-12.0); Monocytes % 3.7 % (1.7-12.7); Platelet Count 240 T/CUMM (130-400); Red Blood Count 3.11 MC/CUMM (3.8-5.5); Red Cell Distribution Width 18.7 % (9.3-17.3)
[2018-09-01 05:28] LABS: Alanine Aminotransferase 54 U/L (16-61); Albumin 2.1 G/DL (3.4-5.0); Alkaline Phosphatase 93 U/L (45-117); Aspartate Amino Transferase 27 U/L (0-37); Bilirubin,Indirect 0.3 MG/DL (0.0-1.0); Blood Urea Nitrogen 28 MG/DL (7-18); Calcium 8.8 MG/DL (8.5-10.1); Glucose 162 MG/DL (74-106); Osmolality,Calculated 290.3 MOS/KG (273-304); Total Protein 5.8 G/DL (6.4-8.3)
[2018-09-01] MEDS: DEXTROSE 5% NACL 0.45% 1,000 ML IV SCH (07:26)
[2018-09-01] MEDS: COENZYME Q10 100 MG CAPSULE PO SCH (09:17)
[2018-09-01] MEDS: CYANOCOBALAMIN 500 MCG TABLET PO SCH (09:17)
[2018-09-01] MEDS: ESCITALOPRAM 10 MG TABLET PO SCH (09:18)
[2018-09-01] MEDS: DOCUSATE SODIUM 100 MG CAPSULE PO SCH (09:18)
[2018-09-01] MEDS: PANTOPRAZOLE 40 MG TABLET PO SCH ×2 (09:18→21:37)
[2018-09-01] MEDS: CARVEDILOL 3.125 MG TABLET PO SCH ×2 (09:18→21:37)
[2018-09-01] MEDS: OMEGA 3 ACID ETHYL ESTERS 1 GM CAPSULE PO SCH (09:18)
[2018-09-01] MEDS: FERROUS SULFATE 325 MG TABLET PO SCH (09:18)
[2018-09-01] MEDS: MULTIVITAMIN (CENTRUM) TABLET PO SCH (09:18)
[2018-09-01] MEDS: methylPREDNISolone SOD SUC 40 MG/1 ML VIAL IV SCH ×2 (09:19→21:56)
[2018-09-01] MEDS: FUROSEMIDE 40 MG TABLET PO SCH (10:11)
[2018-09-01 10:25] LABS: Apearance,Urine CLOUDY (Clear); Bacteria,Urine Many /HPF (Few); Bilirubin,Urine Negative (Negative); Blood, Urine Moderate mg/dL (Negative); Glucose,Urine (UA) Negative (Negative); Ketones,Urine Negative (Negative); Nitrite,Urine Negative (Negative); Protein,Urine Negative; RBC,Urine 14 /HPF (0-4); Squamous Epithelial Cell,Urine Occasional /HPF (0-10); Urine Color Amber (Yellow); Urine Urobilinogen < 2.0 EU/DL (0.2-1.0); WBC,Urine 168 /HPF (0-6)
[2018-09-01] MEDS ORDERED: diphenhydrAMINE CAP 50 MG CAPSULE PO ONE (19:27)
[2018-09-01] MEDS ORDERED: HYDROCORTISONE 1% CREAM 28 GM TUBE TOP PRN (19:31)
[2018-09-01] MEDS: CHLORHEXIDINE 0.12% ORAL RINSE 60 ML BOTTLE SWISH/SPIT SCH (22:07)
[2018-09-02] MEDS: ZALEPLON 5 MG CAPSULE PO PRN ×3 (00:31→20:16)
[2018-09-02] MEDS: ALBUTEROL/IPRATROPIUM 3 ML NEB RESP TX SCH ×5 (04:10→19:27)
[2018-09-02 05:03] LABS: Basophils % 0.1 % (0.0-0.8); Hematocrit 27.2 VOL% (42.0-52.0); Hemoglobin 8.5 GM/DL (14.0-18.0); Immature Granulocytes % 1.9 %; Lymphocytes # 0.8 10*3/uL (1.4-4.0); Lymphocytes % 7.4 % (21.2-54.2); Mean Corpuscular HGB Conc 31.3 GM/DL (32-36); Mean Corpuscular Volume 87.7 FL (87-102); Mean Platelet Volume 12.4 FL (9.6-12.0); Neutrophils % 85.6 % (38.7-73.9); Platelet Count 334 T/CUMM (130-400); Red Cell Distribution Width 18.5 % (9.3-17.3); White Blood Count 10.3 T/CUMM (4-12)
[2018-09-02 05:37] LABS: Alanine Aminotransferase 62 U/L (16-61); Albumin 2.3 G/DL (3.4-5.0); Alkaline Phosphatase 95 U/L (45-117); Aspartate Amino Transferase 27 U/L (0-37); Bilirubin,Indirect 0.5 MG/DL (0.0-1.0); Blood Urea Nitrogen 27 MG/DL (7-18); Calcium 8.8 MG/DL (8.5-10.1); Glucose 128 MG/DL (74-106); Osmolality,Calculated 274.2 MOS/KG (273-304); Total Protein 5.8 G/DL (6.4-8.3)
[2018-09-02 05:41] LABS: Troponin I 0.173 NG/ML (0.00-0.045)
[2018-09-02] MEDS ORDERED: LEVOFLOXACIN 500 MG TABLET PO SCH (09:30)
[2018-09-02] MEDS ORDERED: diphenhydrAMINE CAP 50 MG CAPSULE PO PRN (09:36)
[2018-09-02] MEDS: methylPREDNISolone SOD SUC 40 MG/1 ML VIAL IV SCH ×2 (09:45→20:21)
[2018-09-02] MEDS: MULTIVITAMIN (CENTRUM) TABLET PO SCH (09:46)
[2018-09-02] MEDS: ESCITALOPRAM 10 MG TABLET PO SCH (09:46)
[2018-09-02] MEDS: COENZYME Q10 100 MG CAPSULE PO SCH (09:46)
[2018-09-02] MEDS: OMEGA 3 ACID ETHYL ESTERS 1 GM CAPSULE PO SCH (09:47)
[2018-09-02] MEDS: PANTOPRAZOLE 40 MG TABLET PO SCH ×2 (09:47→20:15)
[2018-09-02] MEDS: FUROSEMIDE 40 MG TABLET PO SCH (09:47)
[2018-09-02] MEDS: FERROUS SULFATE 325 MG TABLET PO SCH (09:47)
[2018-09-02] MEDS: CARVEDILOL 3.125 MG TABLET PO SCH ×2 (09:47→20:15)
[2018-09-02] MEDS: CYANOCOBALAMIN 500 MCG TABLET PO SCH (09:47)
[2018-09-02] MEDS: DOCUSATE SODIUM 100 MG CAPSULE PO SCH (09:47)
[2018-09-02] MEDS: CHLORHEXIDINE 0.12% ORAL RINSE 60 ML BOTTLE SWISH/SPIT SCH ×2 (09:48→20:20)
[2018-09-02] MEDS: ALUMINUM/MAGNES/SIMETH MAX STR 30 ML UDCUP PO PRN (12:31)
[2018-09-02] MEDS ORDERED: diphenhydrAMINE 50 MG/1 ML VIAL IM ONE (13:12)
[2018-09-02] MEDS: hydrOXYzine HCL 10 MG TABLET PO PRN (17:13)
[2018-09-03] MEDS: ALBUTEROL/IPRATROPIUM 3 ML NEB RESP TX SCH ×3 (00:30→07:12)
[2018-09-03] MEDS ORDERED: ALBUTEROL/IPRATROPIUM 3 ML NEB RESP TX PRN (08:14)
[2018-09-03] MEDS: ALUMINUM/MAGNES/SIMETH MAX STR 30 ML UDCUP PO PRN ×4 (08:35→20:27)
[2018-09-03] MEDS ORDERED: SULFAMETHOX/TRIMETHOPRIM 800-160 MG TABLET PO SCH (09:00)
[2018-09-03] MEDS: MULTIVITAMIN (CENTRUM) TABLET PO SCH (09:37)
[2018-09-03] MEDS: CYANOCOBALAMIN 500 MCG TABLET PO SCH (09:37)
[2018-09-03] MEDS: COENZYME Q10 100 MG CAPSULE PO SCH (09:37)
[2018-09-03] MEDS: CARVEDILOL 3.125 MG TABLET PO SCH ×2 (09:37→20:27)
[2018-09-03] MEDS: MEGESTROL 40 MG TABLET PO SCH ×3 (09:38→20:28)
[2018-09-03] MEDS: OMEGA 3 ACID ETHYL ESTERS 1 GM CAPSULE PO SCH (09:38)
[2018-09-03] MEDS: DOCUSATE SODIUM 100 MG CAPSULE PO SCH (09:38)
[2018-09-03] MEDS: FERROUS SULFATE 325 MG TABLET PO SCH (09:38)
[2018-09-03] MEDS: FUROSEMIDE 40 MG TABLET PO SCH (09:38)
[2018-09-03] MEDS: predniSONE 10 MG TABLET PO SCH (09:38)
[2018-09-03] MEDS: CHLORHEXIDINE 0.12% ORAL RINSE 60 ML BOTTLE SWISH/SPIT SCH ×2 (09:39→20:28)
[2018-09-03] MEDS: PANTOPRAZOLE 40 MG TABLET PO SCH ×2 (09:39→20:27)
[2018-09-03] MEDS: hydrOXYzine HCL 10 MG TABLET PO PRN (12:45)
[2018-09-03] MEDS: LEVOFLOXACIN 250 MG TABLET PO SCH (15:07)
[2018-09-03] MEDS: CLORAZEPATE 7.5 MG TABLET PO PRN (20:27)
[2018-09-03] MEDS: TAMSULOSIN 0.4 MG CAPSULE PO SCH (20:28)
[2018-09-04 04:36] LABS: Basophils % 0.2 % (0.0-0.8); Eosinophils # 0.2 10*3/uL (0.0-0.87); Eosinophils % 1.2 % (0.00-10.9); Hematocrit 28.6 VOL% (42.0-52.0); Hemoglobin 8.9 GM/DL (14.0-18.0); Immature Granulocytes % 5.5 %; Immature Granulocytes Absolute 0.66 #; Lymphocytes % 8.6 % (21.2-54.2); Mean Corpuscular HGB Conc 31.1 GM/DL (32-36); Mean Corpuscular Volume 86.9 FL (87-102); Mean Platelet Volume 11.8 FL (9.6-12.0); Monocytes % 8.7 % (1.7-12.7); Neutrophils % 75.8 % (38.7-73.9); Platelet Count 394 T/CUMM (130-400); Red Blood Count 3.29 MC/CUMM (3.8-5.5); Red Cell Distribution Width 19.4 % (9.3-17.3)
[2018-09-04 05:01] LABS: Eosinophils 2 % (0-10); Lymphocytes 5 % (20-55); Segmented Neutrophils 87 % (50-85); Total Cells Counted 100
[2018-09-04 05:02] LABS: Hypochromasia 1+; Platelet Estimate Adequate
[2018-09-04] MEDS: MEGESTROL 40 MG TABLET PO SCH ×3 (08:37→21:11)
[2018-09-04] MEDS: COENZYME Q10 100 MG CAPSULE PO SCH (08:37)
[2018-09-04] MEDS: PANTOPRAZOLE 40 MG TABLET PO SCH ×2 (08:37→21:09)
[2018-09-04] MEDS: MULTIVITAMIN (CENTRUM) TABLET PO SCH (08:37)
[2018-09-04] MEDS: CARVEDILOL 3.125 MG TABLET PO SCH ×2 (08:38→21:10)
[2018-09-04] MEDS: FERROUS SULFATE 325 MG TABLET PO SCH (08:38)
[2018-09-04] MEDS: DOCUSATE SODIUM 100 MG CAPSULE PO SCH (08:38)
[2018-09-04] MEDS: predniSONE 10 MG TABLET PO SCH (08:38)
[2018-09-04] MEDS: CYANOCOBALAMIN 500 MCG TABLET PO SCH (08:38)
[2018-09-04] MEDS: OMEGA 3 ACID ETHYL ESTERS 1 GM CAPSULE PO SCH (08:38)
[2018-09-04] MEDS: FUROSEMIDE 40 MG TABLET PO SCH (08:38)
[2018-09-04] MEDS: CHLORHEXIDINE 0.12% ORAL RINSE 60 ML BOTTLE SWISH/SPIT SCH ×2 (08:39→21:11)
[2018-09-04] MEDS: ALUMINUM/MAGNES/SIMETH MAX STR 30 ML UDCUP PO PRN (13:37)
[2018-09-04] MEDS: LEVOFLOXACIN 250 MG TABLET PO SCH (14:28)
[2018-09-04] MEDS: TAMSULOSIN 0.4 MG CAPSULE PO SCH (21:10)
[2018-09-04] MEDS: CLORAZEPATE 7.5 MG TABLET PO PRN (21:10)
[2018-09-05] MEDS: PANTOPRAZOLE 40 MG TABLET PO SCH (08:43)
[2018-09-05] MEDS: MEGESTROL 40 MG TABLET PO SCH (08:43)
[2018-09-05] MEDS: CYANOCOBALAMIN 500 MCG TABLET PO SCH (08:43)
[2018-09-05] MEDS: COENZYME Q10 100 MG CAPSULE PO SCH (08:43)
[2018-09-05] MEDS: MULTIVITAMIN (CENTRUM) TABLET PO SCH (08:43)
[2018-09-05] MEDS: FERROUS SULFATE 325 MG TABLET PO SCH (08:44)
[2018-09-05] MEDS: FUROSEMIDE 40 MG TABLET PO SCH (08:44)
[2018-09-05] MEDS: predniSONE 10 MG TABLET PO SCH (08:44)
[2018-09-05] MEDS: DOCUSATE SODIUM 100 MG CAPSULE PO SCH (08:44)
[2018-09-05] MEDS: CHLORHEXIDINE 0.12% ORAL RINSE 60 ML BOTTLE SWISH/SPIT SCH (08:44)
[2018-09-05] MEDS: CARVEDILOL 3.125 MG TABLET PO SCH (08:44)
[2018-09-05] MEDS: OMEGA 3 ACID ETHYL ESTERS 1 GM CAPSULE PO SCH (08:44)
[2018-09-05] MEDS: LEVOFLOXACIN 250 MG TABLET PO SCH (14:12)
[2018-09-05 15:03] VITALS: BP 98/53
== END 2018-09-05 13:10 | DRG 216 ==
LOC: N.EDINP 15:50 → N.ED 15:50 → N.TELEN 22:18 → SUATTDRO 08-03 14:16 → N.CVR 08-07 09:38 → N.ICU 08-09 22:24 → N.TELES 08-22 10:10 → N.ICU 08-23 02:52 → N.TELES 08-28 13:58
PROVIDERS: ADMIT Emergency Medicine; ATTEND Internal Medicine

== ENCOUNTER 2018-10-01 22:53 | Inpatient (IN) ==
[2018-10-02 00:41] LABS: Basophils # 0.1 10*3/uL (0.0-0.2); Basophils % 0.6 % (0.0-0.8); Eosinophils # 0.5 10*3/uL (0.0-0.87); Eosinophils % 5.1 % (0.00-10.9); Hematocrit 29.2 VOL% (42.0-52.0); Hemoglobin 8.7 GM/DL (14.0-18.0); Immature Granulocytes % 2.2 %; Immature Granulocytes Absolute 0.24 #; Lymphocytes % 18.9 % (21.2-54.2); Mean Corpuscular HGB Conc 29.8 GM/DL (32-36); Mean Corpuscular Volume 85.9 FL (87-102); Mean Platelet Volume 10.3 FL (9.6-12.0); Monocytes % 11.4 % (1.7-12.7); Neutrophils % 61.8 % (38.7-73.9); Platelet Count 350 T/CUMM (130-400); Red Cell Distribution Width 19.7 % (9.3-17.3); White Blood Count 10.7 T/CUMM (4-12)
[2018-10-02 00:50] LABS: Albumin 2.6 G/DL (3.4-5.0); Bilirubin,Total 0.4 MG/DL (0.2-1.0); Calcium 8.6 MG/DL (8.5-10.1); Osmolality,Calculated 276.7 MOS/KG (273-304); Total Protein 6.6 G/DL (6.4-8.3)
[2018-10-02] MEDS ORDERED: ASPIRIN CHEW 81 MG TABLET PO STA (01:16)
[2018-10-02] MEDS ORDERED: ENOXAPARIN 100 MG/ML SYRINGE SUBCUT STA (01:16)
[2018-10-02] MEDS ORDERED: ONDANSETRON 4 MG/2 ML VIAL IV PRN (03:42)
[2018-10-02] MEDS ORDERED: hydrOXYzine HCL 10 MG TABLET PO PRN (08:39)
[2018-10-02] MEDS ORDERED: MAGNESIUM HYDROXIDE SUSP 30 ML UDCUP PO PRN (08:39)
[2018-10-02] MEDS ORDERED: HYDROCORTISONE 1% CREAM 28 GM TUBE TOP PRN (08:39)
[2018-10-02] MEDS ORDERED: MINERAL OIL/PETROLATUM OPH OINT 3.5 GM TUBE BOTH EYES PRN (08:39)
[2018-10-02] MEDS ORDERED: NITROGLYCERIN SL 0.4 MG TABLET SL PRN (08:39)
[2018-10-02] MEDS ORDERED: ALUMINUM/MAGNES/SIMETH MAX STR 30 ML UDCUP PO PRN (08:39)
[2018-10-02] MEDS ORDERED: CLORAZEPATE 7.5 MG TABLET PO PRN (08:39)
[2018-10-02] MEDS ORDERED: NF- (Fluticasone Furoate-Vilanterol [Breo Ellipta] 1 PUFF) INH SCH (09:00)
[2018-10-02] MEDS ORDERED: TESTOSTERONE TOP SCH (09:00)
[2018-10-02] MEDS ORDERED: PANTOPRAZOLE 40 MG TABLET PO SCH (09:00)
[2018-10-02] MEDS ORDERED: CYANOCOBALAMIN 2500 MCG SL SCH (09:00)
[2018-10-02] MEDS: GLUCOSAMINE 500 MG TABLET PO SCH ×2 (09:45→20:52)
[2018-10-02] MEDS: predniSONE 10 MG TABLET PO SCH (09:45)
[2018-10-02] MEDS: MULTIVITAMIN (CENTRUM) TABLET PO SCH (09:45)
[2018-10-02] MEDS: COENZYME Q10 100 MG CAPSULE PO SCH (09:45)
[2018-10-02] MEDS: DOCUSATE SODIUM 100 MG CAPSULE PO SCH (09:46)
[2018-10-02] MEDS: ATORVASTATIN 10 MG TABLET PO SCH (09:46)
[2018-10-02] MEDS: MEGESTROL 40 MG TABLET PO SCH ×4 (09:47→20:54)
[2018-10-02] MEDS: PANTOPRAZOLE 40 MG TABLET PO SCH ×2 (09:48→20:52)
[2018-10-02] MEDS: CARVEDILOL 3.125 MG TABLET PO SCH ×2 (09:48→20:53)
[2018-10-02] MEDS: ESCITALOPRAM 10 MG TABLET PO SCH ×2 (09:48→20:52)
[2018-10-02] MEDS: FLUTICASONE 50 MCG NASAL SPRAY 16 GM BOTTLE BOTH NARES SCH (09:48)
[2018-10-02] MEDS: FERROUS SULFATE 325 MG TABLET PO SCH (09:48)
[2018-10-02] MEDS: GABAPENTIN 600 MG TABLET PO SCH ×2 (09:48→20:52)
[2018-10-02] MEDS: OMEGA 3 ACID ETHYL ESTERS 1 GM CAPSULE PO SCH (09:50)
[2018-10-02] MEDS: ALBUTEROL/IPRATROPIUM 3 ML NEB RESP TX PRN ×3 (11:05→20:41)
[2018-10-02] MEDS ORDERED: FUROSEMIDE 40 MG/4 ML VIAL IV SCH (16:00)
[2018-10-02] MEDS: FUROSEMIDE 40 MG/4 ML VIAL IV SCH (16:47)
[2018-10-02] MEDS: ASPIRIN EC 81 MG TABLET PO SCH (18:31)
[2018-10-02] MEDS: TAMSULOSIN 0.4 MG CAPSULE PO SCH (20:53)
[2018-10-03 04:50] LABS: Calcium 9.1 MG/DL (8.5-10.1); Osmolality,Calculated 281.3 MOS/KG (273-304)
[2018-10-03] MEDS: ALBUTEROL/IPRATROPIUM 3 ML NEB RESP TX PRN ×3 (07:30→14:05)
[2018-10-03] MEDS: FERROUS SULFATE 325 MG TABLET PO SCH (08:50)
[2018-10-03] MEDS: CARVEDILOL 3.125 MG TABLET PO SCH ×2 (08:51→21:28)
[2018-10-03] MEDS: GABAPENTIN 600 MG TABLET PO SCH ×2 (08:51→21:27)
[2018-10-03] MEDS: DOCUSATE SODIUM 100 MG CAPSULE PO SCH (08:51)
[2018-10-03] MEDS: PANTOPRAZOLE 40 MG TABLET PO SCH ×2 (08:51→21:27)
[2018-10-03] MEDS: OMEGA 3 ACID ETHYL ESTERS 1 GM CAPSULE PO SCH (08:51)
[2018-10-03] MEDS: COENZYME Q10 100 MG CAPSULE PO SCH (08:51)
[2018-10-03] MEDS: MULTIVITAMIN (CENTRUM) TABLET PO SCH (08:51)
[2018-10-03] MEDS: ESCITALOPRAM 10 MG TABLET PO SCH ×2 (08:52→21:27)
[2018-10-03] MEDS: predniSONE 10 MG TABLET PO SCH (08:52)
[2018-10-03] MEDS: FUROSEMIDE 40 MG/4 ML VIAL IV SCH ×2 (08:52→16:07)
[2018-10-03] MEDS: FLUTICASONE 50 MCG NASAL SPRAY 16 GM BOTTLE BOTH NARES SCH (08:52)
[2018-10-03] MEDS: GLUCOSAMINE 500 MG TABLET PO SCH ×2 (08:52→21:27)
[2018-10-03] MEDS: MEGESTROL 40 MG TABLET PO SCH ×3 (08:53→21:28)
[2018-10-03] MEDS: ACETAMINOPHEN 325 MG TABLET PO PRN (13:52)
[2018-10-03] MEDS: ASPIRIN EC 81 MG TABLET PO SCH (18:30)
[2018-10-03] MEDS: TAMSULOSIN 0.4 MG CAPSULE PO SCH (21:28)
[2018-10-04 05:12] LABS: Basophils # 0.1 10*3/uL (0.0-0.2); Basophils % 0.4 % (0.0-0.8); Eosinophils # 0.3 10*3/uL (0.0-0.87); Hematocrit 28.7 VOL% (42.0-52.0); Hemoglobin 8.8 GM/DL (14.0-18.0); Immature Granulocytes % 1.6 %; Immature Granulocytes Absolute 0.18 #; Lymphocytes # 2.3 10*3/uL (1.4-4.0); Lymphocytes % 20.3 % (21.2-54.2); Mean Corpuscular HGB Conc 30.7 GM/DL (32-36); Mean Corpuscular Volume 83.2 FL (87-102); Monocytes % 9.9 % (1.7-12.7); Neutrophils % 64.8 % (38.7-73.9); Platelet Count 356 T/CUMM (130-400); Red Blood Count 3.45 MC/CUMM (3.8-5.5); Red Cell Distribution Width 19.5 % (9.3-17.3); White Blood Count 11.5 T/CUMM (4-12)
[2018-10-04 05:40] LABS: Osmolality,Calculated 281.4 MOS/KG (273-304)
[2018-10-04] MEDS: FUROSEMIDE 40 MG/4 ML VIAL IV SCH ×2 (09:43→16:57)
[2018-10-04] MEDS: GABAPENTIN 600 MG TABLET PO SCH ×2 (09:44→20:59)
[2018-10-04] MEDS: OMEGA 3 ACID ETHYL ESTERS 1 GM CAPSULE PO SCH (09:44)
[2018-10-04] MEDS: MULTIVITAMIN (CENTRUM) TABLET PO SCH (09:45)
[2018-10-04] MEDS: predniSONE 10 MG TABLET PO SCH (09:45)
[2018-10-04] MEDS: ESCITALOPRAM 10 MG TABLET PO SCH ×2 (09:45→20:59)
[2018-10-04] MEDS: PANTOPRAZOLE 40 MG TABLET PO SCH ×2 (09:45→20:59)
[2018-10-04] MEDS: SACUBITRIL/VALSARTAN 49-51 MG TABLET PO SCH ×2 (09:45→20:58)
[2018-10-04] MEDS: DOCUSATE SODIUM 100 MG CAPSULE PO SCH (09:46)
[2018-10-04] MEDS: FERROUS SULFATE 325 MG TABLET PO SCH (09:46)
[2018-10-04] MEDS: CARVEDILOL 3.125 MG TABLET PO SCH ×2 (09:46→20:59)
[2018-10-04] MEDS: FLUTICASONE 50 MCG NASAL SPRAY 16 GM BOTTLE BOTH NARES SCH (09:47)
[2018-10-04] MEDS: GLUCOSAMINE 500 MG TABLET PO SCH ×2 (09:53→20:59)
[2018-10-04] MEDS: MEGESTROL 40 MG TABLET PO SCH ×3 (09:53→21:00)
[2018-10-04] MEDS: ATORVASTATIN 10 MG TABLET PO SCH (09:53)
[2018-10-04] MEDS: ACETAMINOPHEN 325 MG TABLET PO PRN ×2 (09:54→16:56)
[2018-10-04] MEDS: COENZYME Q10 100 MG CAPSULE PO SCH (09:58)
[2018-10-04] MEDS: ALBUTEROL/IPRATROPIUM 3 ML NEB RESP TX PRN ×3 (14:30→22:42)
[2018-10-04] MEDS: ASPIRIN EC 81 MG TABLET PO SCH (21:00)
[2018-10-04] MEDS: TAMSULOSIN 0.4 MG CAPSULE PO SCH (21:00)
[2018-10-05] MEDS: ALBUTEROL/IPRATROPIUM 3 ML NEB RESP TX PRN ×5 (02:43→19:03)
[2018-10-05 06:02] LABS: Calcium 8.7 MG/DL (8.5-10.1); Osmolality,Calculated 279.5 MOS/KG (273-304)
[2018-10-05] MEDS: FERROUS SULFATE 325 MG TABLET PO SCH (09:36)
[2018-10-05] MEDS: predniSONE 10 MG TABLET PO SCH (09:36)
[2018-10-05] MEDS: PANTOPRAZOLE 40 MG TABLET PO SCH ×2 (09:36→22:12)
[2018-10-05] MEDS: ESCITALOPRAM 10 MG TABLET PO SCH ×2 (09:37→22:11)
[2018-10-05] MEDS: FLUTICASONE 50 MCG NASAL SPRAY 16 GM BOTTLE BOTH NARES SCH (09:38)
[2018-10-05] MEDS: GLUCOSAMINE 500 MG TABLET PO SCH ×2 (09:38→22:12)
[2018-10-05] MEDS: MEGESTROL 40 MG TABLET PO SCH ×3 (09:38→22:11)
[2018-10-05] MEDS: DOCUSATE SODIUM 100 MG CAPSULE PO SCH (09:38)
[2018-10-05] MEDS: OMEGA 3 ACID ETHYL ESTERS 1 GM CAPSULE PO SCH (09:38)
[2018-10-05] MEDS: COENZYME Q10 100 MG CAPSULE PO SCH (09:38)
[2018-10-05] MEDS: GABAPENTIN 600 MG TABLET PO SCH ×2 (09:38→22:13)
[2018-10-05] MEDS: MULTIVITAMIN (CENTRUM) TABLET PO SCH (09:38)
[2018-10-05] MEDS: SACUBITRIL/VALSARTAN 49-51 MG TABLET PO SCH ×2 (09:38→22:13)
[2018-10-05] MEDS: CARVEDILOL 3.125 MG TABLET PO SCH ×2 (11:23→22:14)
[2018-10-05] MEDS: FUROSEMIDE 40 MG/4 ML VIAL IV SCH ×2 (11:23→18:22)
[2018-10-05] MEDS: ACETAMINOPHEN 325 MG TABLET PO PRN (18:20)
[2018-10-05] MEDS: ASPIRIN EC 81 MG TABLET PO SCH (22:13)
[2018-10-05] MEDS: TAMSULOSIN 0.4 MG CAPSULE PO SCH (22:13)
[2018-10-06 05:27] LABS: Calcium 8.8 MG/DL (8.5-10.1); Osmolality,Calculated 279.5 MOS/KG (273-304)
[2018-10-06] MEDS ORDERED: LOPERAMIDE 2 MG CAPSULE PO PRN (08:18)
[2018-10-06 08:24] VITALS: BP 105/64
[2018-10-06] MEDS: OMEGA 3 ACID ETHYL ESTERS 1 GM CAPSULE PO SCH (09:27)
[2018-10-06] MEDS: MULTIVITAMIN (CENTRUM) TABLET PO SCH (09:27)
[2018-10-06] MEDS: ATORVASTATIN 10 MG TABLET PO SCH (09:27)
[2018-10-06] MEDS: COENZYME Q10 100 MG CAPSULE PO SCH (09:27)
[2018-10-06] MEDS: GLUCOSAMINE 500 MG TABLET PO SCH (09:27)
[2018-10-06] MEDS: ESCITALOPRAM 10 MG TABLET PO SCH (09:27)
[2018-10-06] MEDS: PANTOPRAZOLE 40 MG TABLET PO SCH (09:28)
[2018-10-06] MEDS: predniSONE 10 MG TABLET PO SCH (09:28)
[2018-10-06] MEDS: MEGESTROL 40 MG TABLET PO SCH ×2 (09:28→09:29)
[2018-10-06] MEDS: SACUBITRIL/VALSARTAN 49-51 MG TABLET PO SCH (09:28)
[2018-10-06] MEDS: FERROUS SULFATE 325 MG TABLET PO SCH (09:28)
[2018-10-06] MEDS: CARVEDILOL 3.125 MG TABLET PO SCH (09:28)
[2018-10-06] MEDS: GABAPENTIN 600 MG TABLET PO SCH (09:28)
[2018-10-06] MEDS: FLUTICASONE 50 MCG NASAL SPRAY 16 GM BOTTLE BOTH NARES SCH (09:32)
[2018-10-06] MEDS: DOCUSATE SODIUM 100 MG CAPSULE PO SCH (09:32)
[2018-10-06] MEDS: FUROSEMIDE 40 MG/4 ML VIAL IV SCH (09:32)
[2018-10-06] MEDS ORDERED: FUROSEMIDE 40 MG TABLET PO SCH (16:00)
== END 2018-10-06 13:08 | DRG 293 ==
LOC: N.ED 22:53 → N.EDINP 10-02 01:20 → N.TELES 10-02 02:56
PROVIDERS: ADMIT Internal Medicine Cardiovascular Disease; ATTEND Internal Medicine Cardiovascular Disease

== ENCOUNTER 2018-10-27 12:09 | Observation (INO) ==
[2018-10-27] MEDS ORDERED: SODIUM CHLORIDE 0.9% 1,000 ML IV STA (12:23)
[2018-10-27 13:17] LABS: Basophils % 0.2 % (0.0-0.8); Eosinophils # 0.2 10*3/uL (0.0-0.87); Eosinophils % 1.4 % (0.00-10.9); Hematocrit 29.7 VOL% (42.0-52.0); Hemoglobin 8.8 GM/DL (14.0-18.0); Immature Granulocytes % 0.9 %; Immature Granulocytes Absolute 0.14 #; Lymphocytes # 1.6 10*3/uL (1.4-4.0); Mean Corpuscular HGB Conc 29.6 GM/DL (32-36); Mean Corpuscular Volume 82.3 FL (87-102); Mean Platelet Volume 11.2 FL (9.6-12.0); Monocytes % 5.2 % (1.7-12.7); Neutrophils % 82.3 % (38.7-73.9); Platelet Count 276 T/CUMM (130-400); Red Blood Count 3.61 MC/CUMM (3.8-5.5); Red Cell Distribution Width 19.3 % (9.3-17.3); White Blood Count 16.4 T/CUMM (4-12)
[2018-10-27 13:38] LABS: Albumin 2.4 G/DL (3.4-5.0); Bilirubin,Total 0.4 MG/DL (0.2-1.0); Calcium 8.3 MG/DL (8.5-10.1); Osmolality,Calculated 281.5 MOS/KG (273-304); Total Protein 6.5 G/DL (6.4-8.3)
[2018-10-27 15:56] LABS: Apearance,Urine CLEAR (Clear); Bacteria,Urine Many /HPF (Few); Bilirubin,Urine Negative (Negative); Blood, Urine Negative (Negative); Glucose,Urine (UA) Negative (Negative); Ketones,Urine Negative (Negative); Mucus,Urine Occasional /LPF (Occasional); Nitrite,Urine Negative (Negative); Protein,Urine Negative; Urine Color Yellow (Yellow); Urine Specific Gravity 1.005 (1.001-1.035); Urine Urobilinogen < 2.0 EU/DL (0.2-1.0); WBC,Urine 4 /HPF (0-6)
[2018-10-27] MEDS ORDERED: ONDANSETRON 4 MG/2 ML VIAL IV PRN (17:30)
[2018-10-27] MEDS ORDERED: SODIUM CHLORIDE 0.9% 1,000 ML IV SCH ×2 (17:30→18:00)
[2018-10-27] MEDS ORDERED: ALUMINUM/MAGNES/SIMETH MAX STR 30 ML UDCUP PO PRN (17:36)
[2018-10-27] MEDS ORDERED: BISACODYL 10 MG SUPP RECTAL PRN (17:36)
[2018-10-27] MEDS ORDERED: MINERAL OIL/PETROLATUM OPH OINT 3.5 GM TUBE BOTH EYES PRN (17:36)
[2018-10-27] MEDS ORDERED: ALBUTEROL/IPRATROPIUM 3 ML NEB RESP TX PRN (17:36)
[2018-10-27] MEDS ORDERED: POLYETHYLENE GLYCOL POWDER 17 GM PACK PO PRN (17:36)
[2018-10-27] MEDS ORDERED: HYDROCORTISONE 2.5% RECTAL CREAM 30 GM TUBE TOP PRN (17:36)
[2018-10-27] MEDS ORDERED: guaiFENesin 200 MG/10 ML UDCUP PO PRN (17:36)
[2018-10-27] MEDS ORDERED: HYDROCORTISONE 100 MG VIAL IV SCH (18:30)
[2018-10-27] MEDS ORDERED: ASPIRIN EC 81 MG TABLET PO SCH (21:00)
[2018-10-27] MEDS ORDERED: LEVOFLOXACIN INJ 500 MG in PREMIX 1 EACH IV SCH (21:00)
[2018-10-27] MEDS ORDERED: TAMSULOSIN 0.4 MG CAPSULE PO SCH (21:00)
[2018-10-27] MEDS ORDERED: ENOXAPARIN 40 MG/0.4 ML SYRINGE SUBCUT SCH (21:00)
[2018-10-27] MEDS: ESCITALOPRAM 10 MG TABLET PO SCH (21:14)
[2018-10-27] MEDS: GABAPENTIN 600 MG TABLET PO SCH (21:14)
[2018-10-27] MEDS: GLUCOSAMINE 500 MG TABLET PO SCH (21:14)
[2018-10-28 00:41] LABS: Basophils % 0.2 % (0.0-0.8); Eosinophils # 0.3 10*3/uL (0.0-0.87); Eosinophils % 2.3 % (0.00-10.9); Hematocrit 28.3 VOL% (42.0-52.0); Hemoglobin 8.4 GM/DL (14.0-18.0); Immature Granulocytes % 0.9 %; Immature Granulocytes Absolute 0.11 #; Lymphocytes # 2.1 10*3/uL (1.4-4.0); Lymphocytes % 16.6 % (21.2-54.2); Mean Corpuscular HGB Conc 29.7 GM/DL (32-36); Mean Corpuscular Volume 81.8 FL (87-102); Mean Platelet Volume 10.5 FL (9.6-12.0); Monocytes % 7.5 % (1.7-12.7); Neutrophils % 72.5 % (38.7-73.9); Platelet Count 259 T/CUMM (130-400); Red Blood Count 3.46 MC/CUMM (3.8-5.5); Red Cell Distribution Width 19.3 % (9.3-17.3); White Blood Count 12.4 T/CUMM (4-12)
[2018-10-28 01:06] LABS: Calcium 8.5 MG/DL (8.5-10.1); Osmolality,Calculated 286.3 MOS/KG (273-304); Risk Ratio 3.14; Thyroid Stimulating Hormone 2.08 uIU/ml (0.358-3.74); VLDL CHOLESTEROL 12.6 MG/DL
[2018-10-28] MEDS: GABAPENTIN 600 MG TABLET PO SCH (08:17)
[2018-10-28] MEDS: GLUCOSAMINE 500 MG TABLET PO SCH (08:17)
[2018-10-28] MEDS: ESCITALOPRAM 10 MG TABLET PO SCH (08:17)
[2018-10-28] MEDS ORDERED: MULTIVITAMIN (CENTRUM) TABLET PO SCH (09:00)
[2018-10-28] MEDS ORDERED: FLUTICASONE 50 MCG NASAL SPRAY 16 GM BOTTLE BOTH NARES SCH (09:00)
[2018-10-28] MEDS ORDERED: CYANOCOBALAMIN 2500 MCG SL SCH (09:00)
[2018-10-28] MEDS ORDERED: PANTOPRAZOLE 40 MG TABLET PO SCH (09:00)
[2018-10-28] MEDS ORDERED: predniSONE 10 MG TABLET PO SCH ×2 (09:00)
[2018-10-28] MEDS ORDERED: NON-FORMULARY MEDICATION (Fluticasone Furoate-Vilanterol [Breo Ellipta] 1 PUFF) INH SCH (09:00)
[2018-10-28] MEDS ORDERED: COENZYME Q10 100 MG CAPSULE PO SCH (09:00)
[2018-10-28] MEDS ORDERED: FERROUS SULFATE 325 MG TABLET PO SCH (09:00)
[2018-10-28] MEDS ORDERED: DOCUSATE SODIUM 100 MG CAPSULE PO SCH (09:00)
[2018-10-28] MEDS ORDERED: TESTOSTERONE TOP SCH (09:00)
[2018-10-28] MEDS ORDERED: OMEGA 3 ACID ETHYL ESTERS 1 GM CAPSULE PO SCH (09:00)
[2018-10-28 12:36] VITALS: BP 119/71
[2018-10-29] MEDS ORDERED: ATORVASTATIN 10 MG TABLET PO SCH (09:00)
== END 2018-10-28 14:34 | disposition home health service (06) ==
LOC: N.5E 12:09 → N.ED 12:09 → N.5E 18:25
PROVIDERS: ADMIT Internal Medicine; ATTEND Internal Medicine